=== PATIENT | female | born 1970 | race Caucasian/White ===

== ENCOUNTER 2017-11-03 13:41 | Observation (INO) ==
[2017-11-03 14:47] LABS: Bilirubin,Urine Negative (Negative); Blood,Urine Small (Negative); Clarity,Urine Clear (Clear); Color,Urine Yellow (Yellow); Glucose,Urine (UA) Normal (Normal); Ketones,Urine Negative (Negative); Leukocyte Esterase,Urine Trace (Negative); Nitrite,Urine Negative (Negative); PH,Urine 6.5 pH Units (5.0-8.0); Protein,Urine Negative (Neg-Trace); Specific Gravity,Urine 1.015 (1.010-1.025); Urobilinogen,Urine Normal (Normal)
[2017-11-03 14:50] LABS: Bacteria,Urine None Seen per hpf (None-Few); Hyaline Casts,Urine None Seen per lpf (None-Few); Squamous Epithelial Cell,Urine Many per lpf (None-Few); WBC,Urine 0-3 per hpf (0-3)
[2017-11-03 14:58] LABS: Basophils % 0.5 %; Eosinophils # 0.1 K/mcL (0.0-0.6); Eosinophils % 0.7 %; Hematocrit 45.6 % (35.3-44.9); Hemoglobin 15.3 g/dL (11.5-15.4); Immature Granulocytes % 0.3 % (0-4); Lymphocytes % 13.5 %; Mean Corpuscular HGB Conc 33.6 g/dL (31.6-35.5); Mean Corpuscular Hemoglobin 31.9 pg (28.0-33.3); Mean Platelet Volume 10.1 fL (9.4-12.4); Monocytes # 0.4 K/mcL (0.0-1.3); Monocytes % 4.8 %; Neutrophils # 5.9 K/mcL (1.6-8.9); Platelet Count 219 K/mcL (140-400); Red Cell Distribution Width 12.7 % (11.5-14.5); Segmented Neutrophils % 80.2 %
[2017-11-03 15:03] LABS: BUN/Creatinine Ratio 9 (6-26); Blood Urea Nitrogen 9 mg/dL (6-20); Calcium 9.3 mg/dL (8.6-10.3); Carbon Dioxide 31 mEq/L (23-29); Chloride 105 mEq/L (98-107); Glucose 79 mg/dL (70-105); Osmolality,Calculated 290 (280-300); Potassium 3.7 mEq/L (3.5-5.1); Sodium 141 mEq/L (136-145); eGFR For Non-African Americans > 60 (> 60)
--- NOTE | 2017-11-03 15:13 | Emergency Department Note ---
Disposition Clinical Impression: Depression Disposition: Admitted As Inpatient Condition: Undetermined Referrals: NONE,PCP [Primary Care Provider] - Aleah Levi MD [Family Provider] - Forms: ED Satisfaction Letter Time of Disposition: 18:00 General Adult HPI - General Chief complaint: ED Psychiatric Symptoms Stated complaint: SI/depression Time Seen by Provider: 11/03/17 14:04 Source: patient Limitations: no limitations Nursing Notes Reviewed: Yes Vital Signs Reviewed: Yes - History of Present Illness HPI Narrative: 47 yo F here for depression and anxiety issues. Patient states she has been struggling most of her life with depression and anxiety. She had been on Lexapro for 18 years. She has had some recent changes in her mood lately. They started her on Lamictal as well. She was placed on this for possible bipolar disorder. She currently is on trazodone and Lexapro. They at supper Lexapro for a while in which she was on another medication but did not have much relief. She denies any homicidal or suicidal thoughts. She does explain helplessness and hopelessness and helplessness. Pain Scale: 0 - Related Data Allergies Allergy/AdvReac Type Severity Reaction Status Date / Time No Known Allergies Allergy Verified 11/03/17 13:56 All systems ED: reviewed and negative except as stated. Constitutional: Denies: fever Eyes: Denies: eye pain Cardiovascular: Denies: chest pain Respiratory: Denies: cough, dyspnea Gastrointestinal: Denies: abdominal pain Genitourinary: Reports: as per HPI Musculoskeletal: Reports: as per HPI Psychiatric: Reports: anxiety, depression. Denies: suicidal thoughts, homicidal thoughts Endocrine: Reports: as per HPI Hematological/Lymphatic: Reports: as per HPI Allergic/Immunologic: Reports: as per HPI Past Medical History - Past Medical History Medical history: Reports: hypertension, other Psychiatric history: Reports: anxiety, bipolar, depression, panic disorder - Social History Smoking Status: Never smoker Smokeless Tobacco Status: No Alcohol use: Reports: none Drug use: Reports: none Physical Exam HEENT: Head atraumatic normocephalic. Pharynx clear with no exudates. Oral mucosa moist. Uvula midline. TMs clear bilaterally. Trachea midline. No lymphadenopathy. Heart: Regular rate and rhythm. Normal S1 and S2. No gallops, rubs, or murmurs. Lungs: Clear to auscultation bilaterally. No evidence of any rhonchi wheezing or rales. Abdomen: Soft nontender nondistended. Positive bowel sounds. No peritoneal signs. Extremities: No evidence of cyanosis clubbing or edema. Neuro: Cranial nerves II through XII grossly intact. No focal motor or sensory deficits. Speech is clear. Skin: Normal color. dry. Psych: normal mentation. Patient feels depressed and withdrawn. No homicidal or suicidal thoughts. - General Limitations: no limitations General appearance: alert, in no apparent distress Course Vital Signs Temperature 97.6 F 11/03/17 13:56 Pulse Rate 63 11/03/17 13:56 Respiratory Rate 16 11/03/17 13:56 Blood Pressure 133/79 11/03/17 13:56 O2 Sat by Pulse Oximetry 98 11/03/17 13:56 Temperature 97.6 F 11/03/17 14:07 Pulse Rate 63 11/03/17 14:07 Respiratory Rate 16 11/03/17 14:07 Blood Pressure 133/79 11/03/17 14:07 O2 Sat by Pulse Oximetry 98 11/03/17 14:07 Oxygen Delivery Oxygen Delivery Room Air Medical Decision Making - MDM Narrative Medical decision making narrative: seen by 1A and will admit pink slip filled out - Medical Records Medical records reviewed: Yes I reviewed the patient's medical records. - Lab Data Lab results reviewed: Yes I reviewed the patient's lab results. Result diagrams: 11/03/17 14:30 11/03/17 14:30 Lab Results 11/03/17 11/03/17 11/03/17 Range/Units 14:30 14:30 14:30 WBC 7.4 (4.3-11.1) K/mcL RBC 4.80 (3.82-4.97) M/mcL Hgb 15.3 (11.5-15.4) g/dL Hct 45.6 H (35.3-44.9) % MCV 95.0 (83.0-100.0) fL MCH 31.9 (28.0-33.3) pg MCHC 33.6 (31.6-35.5) g/dL RDW 12.7 (11.5-14.5) % Plt Count 219 (140-400) K/mcL MPV 10.1 (9.4-12.4) fL Immature Gran % 0.3 (0-4) % Seg Neutrophils % 80.2 % Lymphocytes % 13.5 % Monocytes % 4.8 % Eosinophils % 0.7 % Basophils % 0.5 % Neutrophils # 5.9 (1.6-8.9) K/mcL Lymphocytes # 1.0 (0.6-4.6) K/mcL Monocytes # 0.4 (0.0-1.3) K/mcL Eosinophils # 0.1 (0.0-0.6) K/mcL Basophils # 0.0 (0.0-0.2) K/mcL Sodium (136-145) mEq/L Potassium (3.5-5.1) mEq/L Chloride (98-107) mEq/L Carbon Dioxide (23-29) mEq/L BUN (6-20) mg/dL Creatinine (0.60-1.20) mg/dL Est GFR ( Amer) (> 60) Est GFR (Non-Af Amer) (> 60) BUN/Creatinine Ratio (6-26) Glucose (70-105) mg/dL Calculated Osmolality (280-300) Calcium (8.6-10.3) mg/dL TSH (0.340-5.600) mcIU/mL Urine Color Yellow (Yellow) Urine Clarity Clear (Clear) Urine pH 6.5 (5.0-8.0) pH Units Ur Specific [place] 1.015 (1.010-1.025) Urine Protein Negative (Neg-Trace) mg/dL Urine Glucose (UA) Normal (Normal) mg/dL Urine Ketones Negative (Negative) mg/dL Urine Blood Small H (Negative) Urine Nitrite Negative (Negative) Urine Bilirubin Negative (Negative) Urine Urobilinogen Normal (Normal) mg/dL Ur Leukocyte Esterase Trace H (Negative) Urine Microscopic RBC 3-5 H (0-3) per hpf Urine Microscopic WBC 0-3 (0-3) per hpf Ur Squamous Epith Cells Many H (None-Few) per lpf Urine Bacteria None Seen (None-Few) per hpf Hyaline Casts None Seen (None-Few) per lpf Ur Culture Indicated? NO. A (NO) Urine Opiates Screen Negative (Orxdke=189) ng/mL Ur Barbiturates Screen Negative (Fqoazu=378) ng/mL Ur Phencyclidine Scrn Negative (Cutoff=25) ng/mL Ur Amphetamines Screen Negative (Kkqyxj=0890) ng/mL U Benzodiazepines Scrn Negative (Voylqd=639) ng/mL Urine Cocaine Screen Negative (Cutoff= 300) ng/mL U Marijuana (THC) Screen Negative (Cutoff = 50) ng/mL Ur Drug Screen Interp See Below 11/03/17 11/03/17 Range/Units 14:30 14:30 WBC (4.3-11.1) K/mcL RBC (3.82-4.97) M/mcL Hgb (11.5-15.4) g/dL Hct (35.3-44.9) % MCV (83.0-100.0) fL MCH (28.0-33.3) pg MCHC (31.6-35.5) g/dL RDW (11.5-14.5) % Plt Count (140-400) K/mcL MPV (9.4-12.4) fL Immature Gran % (0-4) % Seg Neutrophils % % Lymphocytes % % Monocytes % % Eosinophils % % Basophils % % Neutrophils # (1.6-8.9) K/mcL Lymphocytes # (0.6-4.6) K/mcL Monocytes # (0.0-1.3) K/mcL Eosinophils # (0.0-0.6) K/mcL Basophils # (0.0-0.2) K/mcL Sodium 141 (136-145) mEq/L Potassium 3.7 (3.5-5.1) mEq/L Chloride 105 (98-107) mEq/L Carbon Dioxide 31 H (23-29) mEq/L BUN 9 (6-20) mg/dL Creatinine 0.95 (0.60-1.20) mg/dL Est GFR ( Amer) > 60 (> 60) Est GFR (Non-Af Amer) > 60 (> 60) BUN/Creatinine Ratio 9 (6-26) Glucose 79 (70-105) mg/dL Calculated Osmolality 290 (280-300) Calcium 9.3 (8.6-10.3) mg/dL TSH 0.759 (0.340-5.600) mcIU/mL Urine Color (Yellow) Urine Clarity (Clear) Urine pH (5.0-8.0) pH Units Ur Specific [place] (1.010-1.025) Urine Protein (Neg-Trace) mg/dL Urine Glucose (UA) (Normal) mg/dL Urine Ketones (Negative) mg/dL Urine Blood (Negative) Urine Nitrite (Negative) Urine Bilirubin (Negative) Urine Urobilinogen (Normal) mg/dL Ur Leukocyte Esterase (Negative) Urine Microscopic RBC (0-3) per hpf Urine Microscopic WBC (0-3) per hpf Ur Squamous Epith Cells (None-Few) per lpf Urine Bacteria (None-Few) per hpf Hyaline Casts (None-Few) per lpf Ur Culture Indicated? (NO) Urine Opiates Screen (Bxbllk=501) ng/mL Ur Barbiturates Screen (Gelwmc=849) ng/mL Ur Phencyclidine Scrn (Cutoff=25) ng/mL Ur Amphetamines Screen (Xubyxp=9699) ng/mL U Benzodiazepines Scrn (Ynenuu=961) ng/mL Urine Cocaine Screen (Cutoff= 300) ng/mL U Marijuana (THC) Screen (Cutoff = 50) ng/mL Ur Drug Screen Interp
[2017-11-03 15:22] LABS: Amphetamine Screen,Urine Negative ng/mL (Cutoff=1000); Barbiturate Screen,Urine Negative ng/mL (Cutoff=200)
[2017-11-03 15:23] LABS: Benzodiazepines Screen,Urine Negative ng/mL (Cutoff=300); Cannabinoid Screen,Urine Negative ng/mL (Cutoff = 50); Cocaine Screen,Urine Negative ng/mL (Cutoff= 300); Opiate Screen,Urine Negative ng/mL (Cutoff=300); Phencyclidine Screen,Urine Negative ng/mL (Cutoff=25)
[2017-11-03] MEDS ORDERED: Mag Hydrox/Al Hydrox/Simeth 30 ML UDC PO PRN (19:55)
[2017-11-03] MEDS ORDERED: hydrOXYzine pamoate 25 MG CAPSULE PO PRN (19:55)
[2017-11-03] MEDS ORDERED: traZODone 50 MG TABLET PO PRN ×2 (19:55→20:21)
[2017-11-03] MEDS ORDERED: Acetaminophen 325 MG TABLET PO PRN (19:55)
[2017-11-03] MEDS ORDERED: *HR* LORazepam 2 MG/ML VIAL IM PRN (19:55)
[2017-11-03] MEDS ORDERED: *HR* LORazepam 1 MG TABLET PO PRN (19:55)
[2017-11-03] MEDS ORDERED: Haloperidol Lactate 5 MG/ML VIAL IM PRN (19:55)
[2017-11-03] MEDS ORDERED: MOM Conc 10 ML UD.LIQ PO PRN (19:55)
[2017-11-03] MEDS ORDERED: clonazePAM 0.5 MG TABLET PO PRN (20:21)
[2017-11-03] MEDS ORDERED: Metoprolol XL (24 HR) Succ 50 MG TAB.ER.24H PO SCH (21:00)
[2017-11-04 08:56] VITALS: BP 137/84
[2017-11-04] MEDS ORDERED: Cholecalciferol (D-3) 1,000 UNIT TABLET PO SCH (09:00)
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
== END 2017-11-04 14:50 | disposition home or self-care (01) ==
LOC: EMEROOARM 13:41 → 1ANU 13:41
PROVIDERS: ADMIT Psychiatry & Neurology Forensic Psychiatry; ATTEND Psychiatry & Neurology Forensic Psychiatry

== ENCOUNTER 2017-11-09 11:26 | Inpatient (IN) ==
[2017-11-09 12:02] LABS: Bilirubin,Urine Negative (Negative); Blood,Urine Large (Negative); Clarity,Urine Cloudy (Clear); Color,Urine Yellow (Yellow); Glucose,Urine (UA) Normal (Normal); Ketones,Urine Negative (Negative); Leukocyte Esterase,Urine Moderate (Negative); Nitrite,Urine Negative (Negative); Protein,Urine Trace mg/dL (Neg-Trace); Urobilinogen,Urine Normal (Normal)
[2017-11-09 12:04] LABS: Bacteria,Urine None Seen per hpf (None-Few); Hyaline Casts,Urine None Seen per lpf (None-Few); RBC,Urine 50-100 per hpf (0-3); Squamous Epithelial Cell,Urine Many per lpf (None-Few)
[2017-11-09 12:08] LABS: Amphetamine Screen,Urine Negative ng/mL (Cutoff=1000); Barbiturate Screen,Urine Negative ng/mL (Cutoff=200); Benzodiazepines Screen,Urine Negative ng/mL (Cutoff=200); Cannabinoid Screen,Urine Negative ng/mL (Cutoff = 50); Cocaine Screen,Urine Negative ng/mL (Cutoff= 300); Opiate Screen,Urine Negative ng/mL (Cutoff=300); Phencyclidine Screen,Urine Negative ng/mL (Cutoff=25)
[2017-11-09 12:20] LABS: Basophils % 0.7 %; Eosinophils # 0.1 K/mcL (0.0-0.6); Eosinophils % 1.1 %; Hematocrit 42.1 % (35.3-44.9); Hemoglobin 14.5 g/dL (11.5-15.4); Immature Granulocytes % 0.2 % (0-4); Lymphocytes # 1.1 K/mcL (0.6-4.6); Lymphocytes % 19.3 %; Mean Corpuscular HGB Conc 34.4 g/dL (31.6-35.5); Mean Corpuscular Hemoglobin 31.5 pg (28.0-33.3); Mean Corpuscular Volume 91.5 fL (83.0-100.0); Monocytes # 0.3 K/mcL (0.0-1.3); Monocytes % 5.1 %; Neutrophils # 4.2 K/mcL (1.6-8.9); Platelet Count 179 K/mcL (140-400); Red Cell Distribution Width 12.6 % (11.5-14.5); Segmented Neutrophils % 73.6 %
[2017-11-09 12:45] LABS: Acetaminophen < 10 mcg/mL (10-20); BUN/Creatinine Ratio 19 (6-26); Blood Urea Nitrogen 16 mg/dL (6-20); Calcium 8.5 mg/dL (8.6-10.3); Carbon Dioxide 28 mEq/L (23-29); Chloride 108 mEq/L (98-107); Ethanol < 10 mg/dL (Less than 10); Glucose 99 mg/dL (70-105); Osmolality,Calculated 287 (280-300); Potassium 4.3 mEq/L (3.5-5.1); Salicylate < 2.5 mg/dL (15.0-30.0); Sodium 138 mEq/L (136-145); eGFR For Non-African Americans > 60 (> 60)
--- NOTE | 2017-11-09 12:50 | Emergency Department Note ---
Disposition Clinical Impression: Suicidal ideation Depression Qualifiers: Depression Type: unspecified Qualified Code(s): F32.9 - Major depressive disorder, single episode, unspecified Disposition: Admitted As Inpatient Condition: Good Forms: ED Satisfaction Letter Time of Disposition: 14:10 Psych HPI - General Chief Complaint: ED Psychiatric Symptoms Stated Complaint: SI Time Seen by Provider: 11/09/17 11:45 Source: patient Mode of arrival: ambulatory Limitations: no limitations Nursing Notes Reviewed: Yes Vital Signs Reviewed: Yes - History of Present Illness HPI Narrative: Patient presents to the emergency room for evaluation of depression. She was seen here one week ago for similar issue. She is starting her home medication Seroquel and since then his had progression of the symptoms. Currently denying chest pain shortness of breath headache vision changes nausea vomiting or diarrhea. Patient denies any active plan of suicidal ideation at this time. Pt complaint: suicidal ideation, feels depressed Onset (ago): week(s) Duration: constant History of similar episodes: Yes Improves with: none Worsens with: none Context: new medication(s) Alleged intoxication: No Associated Psychiatric Symptoms: depression, suicidal ideation Traumatic symptoms: denies traumatic injury Treatments prior to arrival: none Self harm or harm to others: admits thoughts of self harm - Related Data Home Medications Medication Instructions Recorded Confirmed Ergocalciferol (VITAMIN D2) 800 unit PO DAILY 11/03/17 11/09/17 [Vitamin D] Escitalopram [Lexapro] 20 mg PO DAILY 11/03/17 11/09/17 Krill/Om-3/Dha/Epa/Phospho/Ast 1 cap PO DAILY 11/03/17 11/09/17 [[place]-3 Krill Oil 1,000 mg] Metoprolol Succinate [Toprol Xl] 50 mg PO HS 11/03/17 11/09/17 clonazePAM [Clonazepam] 0.5 - 1 mg PO DAILY PRN 11/03/17 11/09/17 Melatonin/Pyridoxine HCl (B6) 1 tab PO HS 11/09/17 11/09/17 [Melatonin 3 mg Tablet] Quetiapine Fumarate [SEROquel] 100 mg PO HS 11/09/17 11/09/17 Allergies Allergy/AdvReac Type Severity Reaction Status Date / Time No Known Allergies Allergy Verified 11/09/17 14:01 All systems ED: reviewed and negative except as stated. Review of Systems: As Per HPI Constitutional: Denies: fever, chills Cardiovascular: Denies: chest pain, palpitations, dyspnea on exertion Respiratory: Denies: cough, dyspnea, wheezes Gastrointestinal: Denies: nausea, vomiting, diarrhea Genitourinary: Denies: dysuria, frequency Musculoskeletal: Denies: back pain, neck pain Neurological: Denies: headache Psychiatric: Reports: depression, suicidal thoughts. Denies: anxiety, homicidal thoughts Endocrine: Denies: fatigue Past Medical History - Past Medical History Attestation: Yes The following information was validated with the patient. Source: patient Medical history: Reports: hypertension, renal disease, other Surgical history: Reports: angioplasty/stent Psychiatric history: Reports: depression, previous psychiatric hospitalization - Social History Smoking Status: Never smoker Smokeless Tobacco Status: No Alcohol use: Reports: none Drug use: Reports: none Physical Exam - General Limitations: no limitations General appearance: alert - Head Head exam: atraumatic, normocephalic, normal inspection - Neck Neck exam: Present: normal inspection, full ROM, trachea midline. Absent: tenderness - Chest Chest inspection: Present: normal inspection, symmetric chest wall rise. Absent : tenderness - Respiratory Respiratory exam: Present: normal lung sounds bilaterally. Absent: respiratory distress, wheezes, accessory muscle use - Cardiovascular Cardiovascular exam: Present: regular rate, normal rhythm, normal heart sounds - Abdominal Exam Abdominal exam: Present: soft, Non-Tender, normal bowel sounds. Absent: tenderness, distention, guarding, rebound, rigidity - Extremities Exam Extremities exam: Present: normal inspection, full ROM, normal capillary refill. Absent: tenderness, pedal edema - Back Exam Back exam: Present: normal inspection, full ROM - Neurological Exam Neurological exam: Present: alert, oriented X3, CN II-XII intact, normal gait - Psychiatric Psychiatric exam: Present: depressed, suicidal ideation - Skin Skin exam: Present: warm, dry, intact, normal color Course Course Narrative: Patient seen and examined the time of arrival. See history of present illness. 47-year-old female presents emergency room for depression. She is also had suicidal thoughts at home with no active plan. She was seen here recently for similar issue. On arrival here, she is denying chest pain shortness of breath headache vision changes nausea vomiting or diarrhea. No fevers no chills. During my evaluation at the bedside for medical clearance the patient was tearful in describing progression of her symptoms at home despite being started on new medication helped with sleep. She denies any trauma or injuries. Denies any ingestion. Physical exam is unremarkable. Vital signs are stable lungs are clear heart is regular abdomen is soft. No other complaints or symptoms this time. Medical clearance evaluation will be established at this point and then patient will have psychiatric treatment completed here at this time. - Reevaluation(s) Reevaluation #1: Medical clearance is completed. No substances of abuse noted on examination. Urine collection was contaminated but no visible signs of urinary tract infection. We will continue to monitor here until psychiatric team evaluates the patient the bedside. Time: 13:07 Reevaluation #2: Patient was evaluated by the psychiatric team and they will be admitting her at this time for continuation of her care. No other recommendations issues at this time Time: 14:10 Vital Signs Temperature 98.4 F 11/09/17 11:29 Pulse Rate 61 11/09/17 11:29 Respiratory Rate 16 11/09/17 11:29 Blood Pressure 150/88 11/09/17 11:29 O2 Sat by Pulse Oximetry 97 11/09/17 11:29 Temperature 98.4 F 11/09/17 11:29 Pulse Rate 61 11/09/17 11:29 Respiratory Rate 16 11/09/17 11:29 Blood Pressure 150/88 11/09/17 11:29 O2 Sat by Pulse Oximetry 97 11/09/17 11:29 Oxygen Delivery Oxygen Delivery Room Air Psych - MDM Narrative Medical decision making narrative: Depression, suicidal ideation - Medical Records Medical records reviewed: Yes I reviewed the patient's medical records. - Lab Data Lab results reviewed: Yes I reviewed the patient's lab results. Result diagrams: 11/09/17 12:09 11/09/17 12:09 Lab Results 11/09/17 11/09/17 11/09/17 Range/Units 10:48 10:48 10:48 WBC (4.3-11.1) K/mcL RBC (3.82-4.97) M/mcL Hgb (11.5-15.4) g/dL Hct (35.3-44.9) % MCV (83.0-100.0) fL MCH (28.0-33.3) pg MCHC (31.6-35.5) g/dL RDW (11.5-14.5) % Plt Count (140-400) K/mcL MPV (9.4-12.4) fL Immature Gran % (0-4) % Seg Neutrophils % % Lymphocytes % % Monocytes % % Eosinophils % % Basophils % % Neutrophils # (1.6-8.9) K/mcL Lymphocytes # (0.6-4.6) K/mcL Monocytes # (0.0-1.3) K/mcL Eosinophils # (0.0-0.6) K/mcL Basophils # (0.0-0.2) K/mcL Sodium (136-145) mEq/L Potassium (3.5-5.1) mEq/L Chloride (98-107) mEq/L Carbon Dioxide (23-29) mEq/L BUN (6-20) mg/dL Creatinine (0.60-1.20) mg/dL Est GFR ( Amer) (> 60) Est GFR (Non-Af Amer) (> 60) BUN/Creatinine Ratio (6-26) Glucose (70-105) mg/dL Calculated Osmolality (280-300) Calcium (8.6-10.3) mg/dL TSH (0.340-5.600) mcIU/mL Urine Color Yellow (Yellow) Urine Clarity Cloudy A (Clear) Urine pH 6.0 (5.0-8.0) pH Units Ur Specific [place] 1.020 (1.010-1.025) Urine Protein Trace (Neg-Trace) mg/dL Urine Glucose (UA) Normal (Normal) mg/dL Urine Ketones Negative (Negative) mg/dL Urine Blood Large H (Negative) Urine Nitrite Negative (Negative) Urine Bilirubin Negative (Negative) Urine Urobilinogen Normal (Normal) mg/dL Ur Leukocyte Esterase Moderate H (Negative) Urine Microscopic RBC 50-100 H (0-3) per hpf Urine Microscopic WBC 5-15 H (0-3) per hpf Ur Squamous Epith Cells Many H (None-Few) per lpf Urine Bacteria None Seen (None-Few) per hpf Hyaline Casts None Seen (None-Few) per lpf Urine Test Negative (Negative) Salicylates (15.0-30.0) mg/dL Urine Opiates Screen Negative (Ijlnmk=869) ng/mL Acetaminophen (10-20) mcg/mL Ur Barbiturates Screen Negative (Gnmqbe=908) ng/mL Ur Phencyclidine Scrn Negative (Cutoff=25) ng/mL Ur Amphetamines Screen Negative (Kraueq=3278) ng/mL U Benzodiazepines Scrn Negative (Tnlbyc=884) ng/mL Urine Cocaine Screen Negative (Cutoff= 300) ng/mL U Marijuana (THC) Screen Negative (Cutoff = 50) ng/mL Ur Drug Screen Interp See Below Ethyl Alcohol (Less than 10) mg/dL 11/09/17 11/09/17 Range/Units 12:09 12:09 WBC 5.7 (4.3-11.1) K/mcL RBC 4.60 (3.82-4.97) M/mcL Hgb 14.5 (11.5-15.4) g/dL Hct 42.1 (35.3-44.9) % MCV 91.5 (83.0-100.0) fL MCH 31.5 (28.0-33.3) pg MCHC 34.4 (31.6-35.5) g/dL RDW 12.6 (11.5-14.5) % Plt Count 179 (140-400) K/mcL MPV 10.0 (9.4-12.4) fL Immature Gran % 0.2 (0-4) % Seg Neutrophils % 73.6 % Lymphocytes % 19.3 % Monocytes % 5.1 % Eosinophils % 1.1 % Basophils % 0.7 % Neutrophils # 4.2 (1.6-8.9) K/mcL Lymphocytes # 1.1 (0.6-4.6) K/mcL Monocytes # 0.3 (0.0-1.3) K/mcL Eosinophils # 0.1 (0.0-0.6) K/mcL Basophils # 0.0 (0.0-0.2) K/mcL Sodium 138 (136-145) mEq/L Potassium 4.3 (3.5-5.1) mEq/L Chloride 108 H (98-107) mEq/L Carbon Dioxide 28 (23-29) mEq/L BUN 16 (6-20) mg/dL Creatinine 0.83 (0.60-1.20) mg/dL Est GFR ( Amer) > 60 (> 60) Est GFR (Non-Af Amer) > 60 (> 60) BUN/Creatinine Ratio 19 (6-26) Glucose 99 (70-105) mg/dL Calculated Osmolality 287 (280-300) Calcium 8.5 L (8.6-10.3) mg/dL TSH 0.621 (0.340-5.600) mcIU/mL Urine Color (Yellow) Urine Clarity (Clear) Urine pH (5.0-8.0) pH Units Ur Specific [place] (1.010-1.025) Urine Protein (Neg-Trace) mg/dL Urine Glucose (UA) (Normal) mg/dL Urine Ketones (Negative) mg/dL Urine Blood (Negative) Urine Nitrite (Negative) Urine Bilirubin (Negative) Urine Urobilinogen (Normal) mg/dL Ur Leukocyte Esterase (Negative) Urine Microscopic RBC (0-3) per hpf Urine Microscopic WBC (0-3) per hpf Ur Squamous Epith Cells (None-Few) per lpf Urine Bacteria (None-Few) per hpf Hyaline Casts (None-Few) per lpf Urine Test (Negative) Salicylates < 2.5 L (15.0-30.0) mg/dL Urine Opiates Screen (Ffqmmu=363) ng/mL Acetaminophen < 10 L (10-20) mcg/mL Ur Barbiturates Screen (Xmcspn=184) ng/mL Ur Phencyclidine Scrn (Cutoff=25) ng/mL Ur Amphetamines Screen (Fuvpgj=3582) ng/mL U Benzodiazepines Scrn (Hogtex=925) ng/mL Urine Cocaine Screen (Cutoff= 300) ng/mL U Marijuana (THC) Screen (Cutoff = 50) ng/mL Ur Drug Screen Interp Ethyl Alcohol < 10 (Less than 10) mg/dL Psychiatric Medical Clearance - Medical Clearance Checklist Does the patient have a NEW psychiatric condition?: No Any abnormalities indicating possible medical illness?: No Any history of medical issues?: Yes Medical History: No Social History Section defined Any abnormal vital signs prior to transfer?: No Current Vitals: Last Vital Signs Temp 98.4 F 11/09/17 11:29 Pulse 61 11/09/17 11:29 Resp 16 11/09/17 11:29 BP 150/88 11/09/17 11:29 Pulse Ox 97 11/09/17 11:29 Is the patient intoxicated or cognitively impaired?: No Psychiatric Lab Panel: Drug Levels and Toxicity 11/09/17 11/09/17 10:48 12:09 Urine Opiates Screen Negative Acetaminophen < 10 L Ur Barbiturates Screen Negative Ur Phencyclidine Scrn Negative Ur Amphetamines Screen Negative U Benzodiazepines Scrn Negative Urine Cocaine Screen Negative U Marijuana (THC) Screen Negative Ethyl Alcohol < 10 Any abnormalities on the physical exam?: No Any abnormal labs?: No Abnormal Labs: Abnormal lab results Chloride 108 mEq/L (98-107) H 11/09/17 12:09 Calcium 8.5 mg/dL (8.6-10.3) L 11/09/17 12:09 Urine Clarity Cloudy (Clear) A 11/09/17 10:48 Urine Blood Large (Negative) H 11/09/17 10:48 Ur Leukocyte Esterase Moderate (Negative) H 11/09/17 10:48 Urine Microscopic RBC 50-100 per hpf (0-3) H 11/09/17 10:48 Urine Microscopic WBC 5-15 per hpf (0-3) H 11/09/17 10:48 Ur Squamous Epith Cells Many per lpf (None-Few) H 11/09/17 10:48 Salicylates < 2.5 mg/dL (15.0-30.0) L 11/09/17 12:09 Acetaminophen < 10 mcg/mL (10-20) L 11/09/17 12:09 Does the patient require durable medical equiptment?: No Is the patient ambulatory?: Yes Is the patient a fall risk?: No Has the patient been medically cleared?: Yes Statement of Medical Clearance: I have evaluated the patient, reviewed diagnostic information, and certify that the patient's medical condition is sufficiently stable that transfer to the psychiatric unit does not pose a significant risk of deterioration.
[2017-11-09 12:58] LABS: Thyroid Stimulating Hormone 0.621 mcIU/mL (0.340-5.600)
[2017-11-09] MEDS ORDERED: traZODone 50 MG TABLET PO PRN (17:14)
[2017-11-09] MEDS ORDERED: MOM Conc 10 ML UD.LIQ PO PRN (17:14)
[2017-11-09] MEDS ORDERED: *HR* LORazepam 2 MG/ML VIAL IM PRN (17:14)
[2017-11-09] MEDS ORDERED: Acetaminophen 325 MG TABLET PO PRN (17:14)
[2017-11-09] MEDS ORDERED: Haloperidol Lactate 5 MG/ML VIAL IM PRN (17:14)
[2017-11-09] MEDS ORDERED: *HR* LORazepam 1 MG TABLET PO PRN (17:14)
[2017-11-09] MEDS ORDERED: hydrOXYzine pamoate 25 MG CAPSULE PO PRN (17:14)
[2017-11-09] MEDS ORDERED: Mag Hydrox/Al Hydrox/Simeth 30 ML UDC PO PRN (17:14)
[2017-11-09] MEDS: clonazePAM 0.5 MG TABLET PO PRN (17:45)
[2017-11-09] MEDS: Metoprolol XL (24 HR) Succ 50 MG TAB.ER.24H PO SCH (20:55)
[2017-11-09] MEDS ORDERED: (Melatonin/Pyridoxine Hcl (B6) [Melatonin 3 Mg Tablet PO SCH (21:00)
[2017-11-10] MEDS: Cholecalciferol (D-3) 1,000 UNIT TABLET PO SCH (08:27)
[2017-11-10] MEDS ORDERED: EPA PO SCH (09:00)
[2017-11-10] MEDS ORDERED: [UNRECOGNIZED DRUG - OTHER] PO SCH (09:00)
[2017-11-10] MEDS ORDERED: AST PO SCH (09:00)
[2017-11-10] MEDS ORDERED: PHOSPHO PO SCH (09:00)
[2017-11-10] MEDS ORDERED: DHA PO SCH (09:00)
[2017-11-10] MEDS ORDERED: KRILL PO SCH (09:00)
--- NOTE | 2017-11-10 13:06 | Psychiatry History & Physical ---
Date of Encounter: 11/10/17 Time of Encounter: 12:30 History of Present Illness Patient Stated Chief Complaint: Depression and suicidal ideation Medicare Admission Attestation: For traditional Medicare patients the provided hospital inpatient services are reasonable and necessary and in the case of services not specified as inpatient -only under 42 CFR 419.22 (n), that they are appropriately provided as inpatient services in accordance 42 CFR 412.3. For Critical Access Hospital the patient may reasonably be expected to be discharged or transferred to a hospital within 96 hours after admission to the Critical Access Hospital. Admitted From: Emergency Dept History of Present Illness: Ms. Connell is a 47 year old female admitted from the emergency department for depression and suicidal ideation. Patient was recently discharged from this unit with a diagnosis of major depression recurrent without psychotic features. Patient was discharged on medication including Lexapro 20 mg Seroquel 100 mg and a small dose Klonopin 0.5 mg twice daily. Patient reports after discharge she was able to sleep about 5 hours however her depression continued to be worse and started having suicidal ideation. Please review records from previous admission for details of the history including past history and family history. Records have been reviewed. Past Med Surg Social Fam HX - Past Medical History Medical history: hypertension, renal disease - Past Psychiatric History Psychiatric history: Reports: previous psychiatric hospitalization Past psychiatric history details: Recently discharged from [facility] October 2017 - Past Surgical History Surgical History: angioplasty/stent - Social History Smoking Status: Never smoker Smokeless Tobacco Status: No Alcohol use: none Drug use: none Medications & Allergies Ergocalciferol (VITAMIN D2) [Vitamin D] 800 unit PO DAILY 11/03/17 [History] Escitalopram [Lexapro] 20 mg PO DAILY 11/03/17 [History] Krill/Om-3/Dha/Epa/Phospho/Ast [[place]-3 Krill Oil 1,000 mg] 1 cap PO DAILY 11/03 [History] Metoprolol Succinate [Toprol Xl] 50 mg PO HS 11/03/17 [History] clonazePAM [Clonazepam] 0.5 - 1 mg PO DAILY PRN 11/03/17 [History] Melatonin/Pyridoxine HCl (B6) [Melatonin 3 mg Tablet] 1 tab PO HS 11/09/17 [ History] Quetiapine Fumarate [SEROquel] 100 mg PO HS 11/09/17 [History] 3 Allergy/AdvReac Type Severity Reaction Status Date / Time No Known Allergies Allergy Verified 11/09/17 14:01 Review of Systems Psychiatric: Reports: depression, anxiety, abnormal sleep pattern, suicidal ideation Exam - HEENT Head exam IM: Present: atraumatic Eye exam IM: Present: EOMI, normal appearance, PERRL ENT exam IM: Present: normal exam - Neurological Neurological exam: Present: CN II-XII intact - Respiratory Respiratory exam IM: Present: CTAB - GI/Abdominal GI/Abdominal exam IM: Present: normal bowel sounds, soft. Absent: tenderness - Extremities Extremities exam IM: Present: full ROM - Skin Skin exam IM: Present: dry, warm - Constitutional Vitals: Temp Pulse Resp BP Pulse Ox 98.3 F 63 16 132/79 97 11/10/17 09:00 11/10/17 09:00 11/10/17 09:00 11/10/17 09:00 11/09/17 11:29 General appearance: age & developmentally appropriate, well-groomed, well- nourished, average - Musculoskeletal Gait: normal Station: relaxed Strength & Tone: normal for patient - Psychiatric Patient Orientation: Yes Person, Yes Time, Yes Place Level of alertness: Alert Behavior: calm, cooperative Psychomotor activity: Normal Eye Contact: Maintains Eye Contact Mood Description: Euthymic/stable, Depressed, Anxious Affect description: congruent with mood, constricted Speech Volume: Normal Speech pattern: normal rate, normal rhythm, normal tone, fluent, spontaneous Language & Vocabulary: consistent with education Thought Process: Linear, Goal Oriented Thought Content: Yes Suicidal ideation, No Homicidal ideation, No Overt delusions, Yes Obsessive thoughts Perceptual Disturbances: No Auditory hallucinations, No Visual hallucinations Attention Span Ability: Capable of Focused Attention Memory Description: Grossly Intact Patient Reliability: Reliable Historian Fund of knowledge: Yes abstraction ability, Yes average, Yes aware of current events Intelligence Estimate: Average Judgment: Limited Insight: Partial Results - Labs Labs: Laboratory Last Values WBC 5.7 K/mcL (4.3-11.1) 11/09/17 12:09 RBC 4.60 M/mcL (3.82-4.97) 11/09/17 12:09 Hgb 14.5 g/dL (11.5-15.4) 11/09/17 12:09 Hct 42.1 % (35.3-44.9) 11/09/17 12:09 MCV 91.5 fL (83.0-100.0) 11/09/17 12:09 MCH 31.5 pg (28.0-33.3) 11/09/17 12:09 MCHC 34.4 g/dL (31.6-35.5) 11/09/17 12:09 RDW 12.6 % (11.5-14.5) 11/09/17 12:09 Plt Count 179 K/mcL (140-400) 11/09/17 12:09 MPV 10.0 fL (9.4-12.4) 11/09/17 12:09 Immature Gran % 0.2 % (0-4) 11/09/17 12:09 Seg Neutrophils % 73.6 % 11/09/17 12:09 Lymphocytes % 19.3 % 11/09/17 12:09 Monocytes % 5.1 % 11/09/17 12:09 Eosinophils % 1.1 % 11/09/17 12:09 Basophils % 0.7 % 11/09/17 12:09 Neutrophils # 4.2 K/mcL (1.6-8.9) 11/09/17 12:09 Lymphocytes # 1.1 K/mcL (0.6-4.6) 11/09/17 12:09 Monocytes # 0.3 K/mcL (0.0-1.3) 11/09/17 12:09 Eosinophils # 0.1 K/mcL (0.0-0.6) 11/09/17 12:09 Basophils # 0.0 K/mcL (0.0-0.2) 11/09/17 12:09 Sodium 138 mEq/L (136-145) 11/09/17 12:09 Potassium 4.3 mEq/L (3.5-5.1) 11/09/17 12:09 Chloride 108 mEq/L (98-107) H 11/09/17 12:09 Carbon Dioxide 28 mEq/L (23-29) 11/09/17 12:09 BUN 16 mg/dL (6-20) 11/09/17 12:09 Creatinine 0.83 mg/dL (0.60-1.20) 11/09/17 12:09 Est GFR ( Amer) > 60 (> 60) 11/09/17 12:09 Est GFR (Non-Af Amer) > 60 (> 60) 11/09/17 12:09 BUN/Creatinine Ratio 19 (6-26) 11/09/17 12:09 Glucose 99 mg/dL (70-105) 11/09/17 12:09 Calculated Osmolality 287 (280-300) 11/09/17 12:09 Calcium 8.5 mg/dL (8.6-10.3) L 11/09/17 12:09 TSH 0.621 mcIU/mL (0.340-5.600) 11/09/17 12:09 Urine Color Yellow (Yellow) 11/09/17 10:48 Urine Clarity Cloudy (Clear) A 11/09/17 10:48 Urine pH 6.0 pH Units (5.0-8.0) 11/09/17 10:48 Ur Specific [place] 1.020 (1.010-1.025) 11/09/17 10:48 Urine Protein Trace mg/dL (Neg-Trace) 11/09/17 10:48 Urine Glucose (UA) Normal mg/dL (Normal) 11/09/17 10:48 Urine Ketones Negative mg/dL (Negative) 11/09/17 10:48 Urine Blood Large (Negative) H 11/09/17 10:48 Urine Nitrite Negative (Negative) 11/09/17 10:48 Urine Bilirubin Negative (Negative) 11/09/17 10:48 Urine Urobilinogen Normal mg/dL (Normal) 11/09/17 10:48 Ur Leukocyte Esterase Moderate (Negative) H 11/09/17 10:48 Urine Microscopic RBC 50-100 per hpf (0-3) H 11/09/17 10:48 Urine Microscopic WBC 5-15 per hpf (0-3) H 11/09/17 10:48 Ur Squamous Epith Cells Many per lpf (None-Few) H 11/09/17 10:48 Urine Bacteria None Seen per hpf (None-Few) 11/09/17 10:48 Hyaline Casts None Seen per lpf (None-Few) 11/09/17 10:48 Urine Test Negative (Negative) 11/09/17 10:48 Salicylates < 2.5 mg/dL (15.0-30.0) L 11/09/17 12:09 Urine Opiates Screen Negative ng/mL (Fpgjky=683) 11/09/17 10:48 Acetaminophen < 10 mcg/mL (10-20) L 11/09/17 12:09 Ur Barbiturates Screen Negative ng/mL (Fgyoua=653) 11/09/17 10:48 Ur Phencyclidine Scrn Negative ng/mL (Cutoff=25) 11/09/17 10:48 Ur Amphetamines Screen Negative ng/mL (Kzmxov=4491) 11/09/17 10:48 U Benzodiazepines Scrn Negative ng/mL (Nbvorg=804) 11/09/17 10:48 Urine Cocaine Screen Negative ng/mL (Cutoff= 300) 11/09/17 10:48 U Marijuana (THC) Screen Negative ng/mL (Cutoff = 50) 11/09/17 10:48 Ur Drug Screen Interp See Below 11/09/17 10:48 Ethyl Alcohol < 10 mg/dL (Less than 10) 11/09/17 12:09 Assessment and Plan (1) Major depressive disorder, recurrent severe without psychotic features Current visit: No Status: Acute Plan: Admit inpatient for safety and stabilization, Close observation, Suicide Precautions per unit protocol, Encourage participation in unit milieu, Group Therapy, Monitor sleep, Monitor appetite Additional Plan: Cymbalta 30 mg daily Risks, benefits, side effects, alternatives discussed w/pt: Yes Patient agreeable to treatment: Yes Estimated Length of Stay (Days): 7
[2017-11-10] MEDS: clonazePAM 0.5 MG TABLET PO PRN (18:52)
[2017-11-10] MEDS: Metoprolol XL (24 HR) Succ 50 MG TAB.ER.24H PO SCH (21:53)
[2017-11-10] MEDS: Melatonin 3 MG TABLET PO PRN (21:55)
[2017-11-11] MEDS: Cholecalciferol (D-3) 1,000 UNIT TABLET PO SCH (08:55)
[2017-11-11] MEDS: clonazePAM 0.5 MG TABLET PO PRN ×2 (15:29→20:51)
--- NOTE | 2017-11-11 15:53 | Psychiatry Progress Note ---
Date of Encounter: 11/11/17 Time of Encounter: 14:00 Subjective Interval history: Patient seen for follow-up. Case discussed with treatment team. Patient reports feeling less depressed. Denied any side effects of medication changes. She slept 5-6 hours. She is less anxious. She shared with me some of her recent history of depression and work stress. 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 She was educated about benzodiazepine long-term side effects and she is motivated to taper off her Klonopin completely. She denied any suicidal ideation. Review of Systems Psychiatric: Reports: depression, anxiety, abnormal sleep pattern, suicidal ideation Results - Vital Signs Vital Signs: Temp Pulse Resp BP Pulse Ox 98.2 F 67 18 132/88 97 11/11/17 09:00 11/11/17 09:00 11/11/17 09:11/11/17 09:11/09/17 11:29 Assessment and Plan (1) Major depressive disorder, recurrent severe without psychotic features Current visit: No Status: Acute Plan: Continue hospitalization, Close observation, Suicide Precautions per unit protocol, Encourage participation in unit milieu, Group Therapy, Monitor sleep, Monitor appetite Risks, benefits, side effects, alternatives discussed w/pt: Yes Patient agreeable to treatment: Yes Consult Discharge Plan - Plan Referrals: [facility] [Outside] - 11/17/17 11:00 am (The above appointment is with Sybil Jain for outpatient mental health counseling services.) [facility] [Outside] - 11/19/17 9:00 am (The above appointment is with Casimiro Yepez for outpatient psychiatric assessment and medication management services. Please arrive 10 minutes early to complete the check-in process. Please bring your insurance card (or [facility] award letter) and photo ID. If you are unable to keep this appointment, 24 hour business notice of cancellation is expected. If you miss your new patient appointment with any provider without providing appropriate notice, you cannot be re-scheduled for that service. The above appointment(s) reflects first availability. You may contact the office regularly to check for cancellations that may allow you to be seen sooner. The [facility] is the 1st building behind [facility] in [place], [place]. Please do not use GPS or mapping apps to locate the office, as they will take you to the wrong location. ) Psychiatry Exam - Constitutional Vitals: Temp Pulse Resp BP Pulse Ox 98.2 F 67 18 132/88 97 11/11/17 09:00 11/11/17 09:00 11/11/17 09:00 11/11/17 09:00 11/09/17 11:29 General appearance: age & developmentally appropriate, well-groomed, well- nourished, average - Musculoskeletal Gait: normal Station: relaxed Strength & Tone: normal for patient - Psychiatric Patient Orientation: Yes Person, Yes Time, Yes Place Level of alertness: Alert Behavior: calm, cooperative, guarded, talkative Psychomotor activity: Normal Eye Contact: Maintains Eye Contact Mood Description: Euthymic/stable Affect description: congruent with mood, full range Speech Volume: Normal Speech pattern: normal rate, normal rhythm, normal tone, fluent, spontaneous Language & Vocabulary: consistent with education Thought Process: Linear, Goal Oriented Thought Content: No Suicidal ideation, No Homicidal ideation, No Overt delusions Perceptual Disturbances: No Auditory hallucinations, No Visual hallucinations Attention Span Ability: Capable of Focused Attention Memory Description: Grossly Intact Patient Reliability: Reliable Historian Fund of knowledge: Yes abstraction ability, Yes aware of current events Intelligence Estimate: Average Judgment: Limited Insight: Partial
[2017-11-11] MEDS: Melatonin 3 MG TABLET PO PRN (20:52)
[2017-11-11] MEDS: Metoprolol XL (24 HR) Succ 50 MG TAB.ER.24H PO SCH (20:53)
[2017-11-12 08:41] VITALS: BP 125/83
[2017-11-12] MEDS: Cholecalciferol (D-3) 1,000 UNIT TABLET PO SCH (09:07)
--- NOTE | 2017-11-12 12:32 | Discharge Summary ---
Date of Encounter: 11/12/17 Time of Encounter: 12:28 Diagnosis - Discharge Diagnosis (1) Major depressive disorder, recurrent severe without psychotic features Status: Acute Medications - Discharge Medications Prescriptions: DULoxetine [Cymbalta] 30 mg PO DAILY #30 capsule. Ergocalciferol (VITAMIN D2) [Vitamin D] 800 unit PO DAILY 11/03/17 [History] Escitalopram [Lexapro] 20 mg PO DAILY 11/03/17 [History] Krill/Om-3/Dha/Epa/Phospho/Ast [[place]-3 Krill Oil 1,000 mg] 1 cap PO DAILY 11/03 [History] Metoprolol Succinate [Toprol Xl] 50 mg PO HS 11/03/17 [History] clonazePAM [Clonazepam] 0.5 - 1 mg PO DAILY PRN 11/03/17 [History] Melatonin/Pyridoxine HCl (B6) [Melatonin 3 mg Tablet] 1 tab PO HS 11/09/17 [ History] Quetiapine Fumarate [Seroquel] 100 mg PO HS 11/09/17 [History] DULoxetine [Cymbalta] 30 mg PO DAILY #30 capsule. 11/12/17 [Rx] 3 Allergy/AdvReac Type Severity Reaction Status Date / Time No Known Allergies Allergy Verified 11/09/17 14:01 Provider Date of admission: 11/09/17 15:32 Primary care physician: PCP NONE Consults: 11/09/17 16:53 Consult to Pastoral Services [CONS] Routine Comment: Discharging clinician: Dwight [facility] Psychiatry Exam - Constitutional Vitals: Temp Pulse Resp BP Pulse Ox 98.2 F 61 16 125/83 97 11/12/17 08:40 11/12/17 08:40 11/12/17 08:40 11/12/17 08:40 11/09/17 11:29 General appearance: age & developmentally appropriate, well-groomed, well- nourished - Musculoskeletal Gait: normal Station: relaxed Strength & Tone: normal for patient - Psychiatric Patient Orientation: Yes Person, Yes Time, Yes Place Level of alertness: Alert Behavior: calm, cooperative Psychomotor activity: Normal Eye Contact: Maintains Eye Contact Mood Description: Euthymic/stable Affect description: congruent with mood, full range Speech Volume: Normal Speech pattern: normal rate, normal rhythm, normal tone, fluent, spontaneous Language & Vocabulary: consistent with education Thought Process: Linear, Goal Oriented Thought Content: No Suicidal ideation, No Homicidal ideation, No Overt delusions Perceptual Disturbances: No Auditory hallucinations, No Visual hallucinations Attention Span Ability: Capable of Focused Attention Memory Description: Grossly Intact Patient Reliability: Reliable Historian Fund of knowledge: Yes abstraction ability, Yes aware of current events Intelligence Estimate: Average Judgment: Limited Insight: Partial Hospital Course Hospital course: Ms. Connell is a 47 year old female admitted from the emergency department for suicidal ideation. Patient was recently discharged from this unit and reported increasing depression and suicidal ideation. For details of admission please see H&P On the units patient was encouraged to participate in groups and activities, her medication were reviewed with and and were added Cymbalta 30 mg daily. Patient responded to medication changes, she reported improved sleep, energy and motivation. She denied any side effects from medication. She was educated about benzodiazepine dependence and she will taper off her small dose of Klonopin in the next few weeks. On discharge patient was medically stable, future oriented and anxious to go back to work denied any suicidal thoughts and adjusting well to her medication. Follow-up appointments were confirmed by social work. She is discharged in stable condition. - Time Spent with Patient Total time spent providing and/or coordinating discharge services: Greater than 30 minutes Assessment and Plan - Patient/Caregiver Discharge Instructions Activity: resume usual activities as tolerated Diet: regular diet - Follow up Plan Follow up with: [facility] [Outside] - 11/17/17 11:00 am (The above appointment is with Sybil Jain for outpatient mental health counseling services.) [facility] [Outside] - 11/19/17 9:00 am (The above appointment is with Casimiro Yepez for outpatient psychiatric assessment and medication management services. Please arrive 10 minutes early to complete the check-in process. Please bring your insurance card (or [facility]) and photo ID. If you are unable to keep this appointment, 24 hour business notice of cancellation is expected. If you miss your new patient appointment with any provider without providing appropriate notice, you cannot be re-scheduled for that service. The above appointment(s) reflects first availability. You may contact the office regularly to check for cancellations that may allow you to be seen sooner. The [facility] is the [address] [place] [address] behind [facility], [place]. Please do not use GPS or mapping apps to locate the office, as they will take you to the wrong location. ) Functional capacity at discharge: independent ambulation Overall status at discharge: Stable Disposition: Home, Self-Care Quality - Multiple Antipsychotics Patient discharged on 2 or more antipsychotic medications: No Procedures - Procedures Procedures: Medication Management, Crisis Stabilization, Supportive Therapy, Group Therapy, Psychoeducational Therapy
== END 2017-11-12 15:45 | disposition home or self-care (01) | DRG 885 ==
LOC: EMEROOARM 11:26 → 1ANU 15:32
PROVIDERS: ADMIT Psychiatry & Neurology Psychiatry; ATTEND Psychiatry & Neurology Psychiatry

== ENCOUNTER 2018-04-07 15:45 | Inpatient (IN) ==
[2018-04-07 16:34] LABS: Bilirubin,Urine Negative (Negative); Blood,Urine Trace-intact (Negative); Clarity,Urine Clear (Clear); Color,Urine Yellow (Yellow); Glucose,Urine (UA) Normal (Normal); Ketones,Urine Negative (Negative); Leukocyte Esterase,Urine Negative (Negative); Nitrite,Urine Negative (Negative); PH,Urine 6.5 pH Units (5.0-8.0); Protein,Urine Negative (Neg-Trace); Urobilinogen,Urine Normal (Normal)
[2018-04-07 16:37] LABS: Amphetamine Screen,Urine Negative ng/mL (Cutoff=1000); Barbiturate Screen,Urine Negative ng/mL (Cutoff=200); Benzodiazepines Screen,Urine Negative ng/mL (Cutoff=200); Cannabinoid Screen,Urine Negative ng/mL (Cutoff = 50); Cocaine Screen,Urine Negative ng/mL (Cutoff= 300); Opiate Screen,Urine Negative ng/mL (Cutoff=300); Phencyclidine Screen,Urine Negative ng/mL (Cutoff=25)
[2018-04-07 16:43] LABS: Basophils % 0.4 %; Eosinophils % 0.4 %; Hematocrit 41.9 % (35.3-44.9); Hemoglobin 14.6 g/dL (11.5-15.4); Immature Granulocytes % 0.2 % (0-4); Lymphocytes # 1.4 K/mcL (0.6-4.6); Lymphocytes % 15.4 %; Mean Corpuscular HGB Conc 34.8 g/dL (31.6-35.5); Mean Corpuscular Hemoglobin 31.3 pg (28.0-33.3); Mean Corpuscular Volume 89.9 fL (83.0-100.0); Mean Platelet Volume 9.8 fL (9.4-12.4); Monocytes # 0.4 K/mcL (0.0-1.3); Monocytes % 4.5 %; Neutrophils # 7.3 K/mcL (1.6-8.9); Platelet Count 232 K/mcL (140-400); Red Blood Count 4.66 M/mcL (3.82-4.97); Red Cell Distribution Width 11.9 % (11.5-14.5); Segmented Neutrophils % 79.1 %
[2018-04-07 16:51] LABS: Bacteria,Urine Few per hpf (None-Few); RBC,Urine 0-3 per hpf (0-3); Squamous Epithelial Cell,Urine Few per lpf (None-Few); WBC,Urine 0-3 per hpf (0-3)
--- NOTE | 2018-04-07 17:00 | Emergency Department Note ---
Disposition Clinical Impression: Depression, Suicidal ideation Disposition: Admitted As Inpatient Condition: Good Psych HPI - General Chief Complaint: ED Psychiatric Symptoms Stated Complaint: SI Time Seen by Provider: 04/07/18 16:17 Source: patient Mode of arrival: private vehicle Limitations: no limitations Nursing Notes Reviewed: Yes Vital Signs Reviewed: Yes - History of Present Illness HPI Narrative: 47-year-old female presenting with depression and suicidal ideation. She was admitted here 10 days ago for medication adjustments. She reports continued restlessness since being here however she was offered to be changed to propranolol but did not want to. She denies any current plan to harm herself. Denies any auditory or visual hallucinations. No other complaints. Pt complaint: suicidal ideation, feels depressed Onset (ago): day(s) Duration: constant History of similar episodes: Yes Improves with: none Worsens with: none Context: new medication(s) Alleged intoxication: No Associated Psychiatric Symptoms: depression, suicidal ideation Associated symptoms: Reports: denies other symptoms Traumatic symptoms: denies traumatic injury Treatments prior to arrival: none Self harm or harm to others: admits thoughts of self harm - Related Data Home Medications Medication Instructions Recorded Confirmed Ergocalciferol (VITAMIN D2) 800 unit PO DAILY 11/03/17 03/28/18 [Vitamin D] Metoprolol Succinate [Toprol Xl] 50 mg PO HS 11/03/17 03/28/18 clonazePAM [Clonazepam] 0.5 mg PO TID PRN 11/03/17 03/28/18 Estradiol [Estrace] 1 mg PO DAILY 03/28/18 03/28/18 Lisinopril [Zestril] 5 mg PO DAILY 03/28/18 03/28/18 Medroxyprogesterone Acetate 5 mg PO DAILY 03/28/18 03/28/18 [Provera] Ondansetron HCl [Zofran] 4 mg PO BID PRN 03/28/18 03/28/18 Quetiapine Fumarate [Seroquel] 25 mg PO HS 03/28/18 03/28/18 Previous Rx's Medication Instructions Recorded ARIPiprazole [Abilify] 10 mg PO QAM #30 tablet 04/02/18 Escitalopram [Lexapro] 20 mg PO DAILY #30 tablet 04/02/18 Melatonin 6 mg PO HS tablet 04/02/18 clonazePAM [Klonopin] 1 mg PO HS 30 Days #30 tablet 04/02/18 hydrOXYzine pamoate [HydrOXYzine 25 mg PO TID PRN #90 capsule 04/02/18 Pamoate] Allergies Allergy/AdvReac Type Severity Reaction Status Date / Time No Known Allergies Allergy Verified 11/09/17 14:01 All systems ED: reviewed and negative except as stated. Cardiovascular: Denies: chest pain Respiratory: Denies: dyspnea Psychiatric: Reports: anxiety, depression, suicidal thoughts. Denies: homicidal thoughts, auditory hallucinations, visual hallucinations Past Medical History - Past Medical History Attestation: Yes The following information was validated with the patient. Source: patient Medical history: Reports: hypertension, renal disease Surgical history: Reports: angioplasty/stent Psychiatric history: Reports: anxiety, bipolar, depression, panic disorder, previous psychiatric hospitalization - Social History Smoking Status: Never smoker Smokeless Tobacco Status: No Alcohol use: Reports: none Drug use: Reports: none Physical Exam - General Limitations: no limitations General appearance: alert, in no apparent distress - Head Head exam: atraumatic, normocephalic, normal inspection - Eye Eye exam: Present: normal appearance - ENT ENT exam: normal exam - Neck Neck exam: Present: normal inspection - Chest Chest inspection: Present: normal inspection, symmetric chest wall rise - Respiratory Respiratory exam: Present: normal lung sounds bilaterally - Cardiovascular Cardiovascular exam: Present: regular rate, normal rhythm, normal heart sounds - Abdominal Exam Abdominal exam: Present: soft, Non-Tender. Absent: tenderness, distention, rigidity - Extremities Exam Extremities exam: Present: normal inspection, full ROM - Expanded Upper Extremity Exam Shoulder exam: Present: normal inspection, full ROM Arm exam: Present: normal inspection, full ROM Elbow exam: Present: normal inspection, full ROM Forearm/Wrist exam: Present: normal inspection, full ROM Hand exam: Present: normal inspection, full ROM - Expanded Lower Extremity Exam Hip/Pelvis exam: Present: normal inspection, full ROM Upper leg exam: Present: normal inspection, full ROM Knee exam: Present: normal inspection, full ROM Lower leg exam: Present: normal inspection, full ROM Ankle exam: Present: normal inspection, full ROM Foot/toe exam: Present: normal inspection, full ROM - Neurological Exam Neurological exam: Present: alert, other (GCS 15. No focal deficits.) - Psychiatric Psychiatric exam: Present: depressed, suicidal ideation - Skin Skin exam: Present: warm, dry Course Course Narrative: Patient seen and examined. Vital signs reviewed. She is pink slipped awaiting medical clearance for psychiatric evaluation. Vital Signs Temperature 97.7 F 04/07/18 15:52 Pulse Rate 85 04/07/18 15:52 Respiratory Rate 16 04/07/18 15:52 Blood Pressure 175/90 04/07/18 15:52 O2 Sat by Pulse Oximetry 98 04/07/18 15:52 Temperature 97.7 F 04/07/18 15:52 Pulse Rate 85 04/07/18 15:52 Respiratory Rate 16 04/07/18 15:52 Blood Pressure 175/90 04/07/18 15:52 O2 Sat by Pulse Oximetry 98 04/07/18 15:52 Oxygen Delivery Oxygen Delivery Room Air Psych - MDM Narrative Medical decision making narrative: 47-year-old female presenting with depression and suicidal ideation. She was medically cleared and evaluated by psychiatry. She is admitted to the psych iatric unit for inpatient management. - Lab Data Lab results reviewed: Yes I reviewed the patient's lab results. Result diagrams: 04/07/18 16:31 04/07/18 16:31 Lab Results 04/07/18 04/07/18 04/07/18 Range/Units 16:15 16:15 16:15 WBC (4.3-11.1) K/mcL RBC (3.82-4.97) M/mcL Hgb (11.5-15.4) g/dL Hct (35.3-44.9) % MCV (83.0-100.0) fL MCH (28.0-33.3) pg MCHC (31.6-35.5) g/dL RDW (11.5-14.5) % Plt Count (140-400) K/mcL MPV (9.4-12.4) fL Immature Gran % (0-4) % Seg Neutrophils % % Lymphocytes % % Monocytes % % Eosinophils % % Basophils % % Neutrophils # (1.6-8.9) K/mcL Lymphocytes # (0.6-4.6) K/mcL Monocytes # (0.0-1.3) K/mcL Eosinophils # (0.0-0.6) K/mcL Basophils # (0.0-0.2) K/mcL Sodium (136-145) mEq/L Potassium (3.5-5.1) mEq/L Chloride (98-107) mEq/L Carbon Dioxide (23-29) mEq/L BUN (6-20) mg/dL Creatinine (0.60-1.20) mg/dL Est GFR ( Amer) (> 60) Est GFR (Non-Af Amer) (> 60) BUN/Creatinine Ratio (6-26) Glucose (70-105) mg/dL Calculated Osmolality (280-300) Calcium (8.6-10.3) mg/dL Urine Color Yellow (Yellow) Urine Clarity Clear (Clear) Urine pH 6.5 (5.0-8.0) pH Units Ur Specific Leadore 1.020 (1.010-1.025) Urine Protein Negative (Neg-Trace) mg/dL Urine Glucose (UA) Normal (Normal) mg/dL Urine Ketones Negative (Negative) mg/dL Urine Blood Trace-intact H (Negative) Urine Nitrite Negative (Negative) Urine Bilirubin Negative (Negative) Urine Urobilinogen Normal (Normal) mg/dL Ur Leukocyte Esterase Negative (Negative) Urine Microscopic RBC 0-3 (0-3) per hpf Urine Microscopic WBC 0-3 (0-3) per hpf Ur Squamous Epith Cells Few (None-Few) per lpf Urine Bacteria Few (None-Few) per hpf Urine Test Negative (Negative) Salicylates (15.0-30.0) mg/dL Urine Opiates Screen Negative (Bkuyvp=164) ng/mL Acetaminophen (10-20) mcg/mL Ur Barbiturates Screen Negative (Nrdhiz=882) ng/mL Ur Phencyclidine Scrn Negative (Cutoff=25) ng/mL Ur Amphetamines Screen Negative (Ajalgc=1771) ng/mL U Benzodiazepines Scrn Negative (Gubsds=900) ng/mL Urine Cocaine Screen Negative (Cutoff= 300) ng/mL U Marijuana (THC) Screen Negative (Cutoff = 50) ng/mL Ur Drug Screen Interp See Below Ethyl Alcohol (Less than 10) mg/dL Specimen Rejected 04/07/18 04/07/18 04/07/18 Range/Units 16:31 16:31 16:31 WBC 9.2 (4.3-11.1) K/mcL RBC 4.66 (3.82-4.97) M/mcL Hgb 14.6 (11.5-15.4) g/dL Hct 41.9 (35.3-44.9) % MCV 89.9 (83.0-100.0) fL MCH 31.3 (28.0-33.3) pg MCHC 34.8 (31.6-35.5) g/dL RDW 11.9 (11.5-14.5) % Plt Count 232 (140-400) K/mcL MPV 9.8 (9.4-12.4) fL Immature Gran % 0.2 (0-4) % Seg Neutrophils % 79.1 % Lymphocytes % 15.4 % Monocytes % 4.5 % Eosinophils % 0.4 % Basophils % 0.4 % Neutrophils # 7.3 (1.6-8.9) K/mcL Lymphocytes # 1.4 (0.6-4.6) K/mcL Monocytes # 0.4 (0.0-1.3) K/mcL Eosinophils # 0.0 (0.0-0.6) K/mcL Basophils # 0.0 (0.0-0.2) K/mcL Sodium (136-145) mEq/L Potassium (3.5-5.1) mEq/L Chloride (98-107) mEq/L Carbon Dioxide (23-29) mEq/L BUN (6-20) mg/dL Creatinine (0.60-1.20) mg/dL Est GFR ( Amer) (> 60) Est GFR (Non-Af Amer) (> 60) BUN/Creatinine Ratio (6-26) Glucose (70-105) mg/dL Calculated Osmolality (280-300) Calcium (8.6-10.3) mg/dL Urine Color (Yellow) Urine Clarity (Clear) Urine pH (5.0-8.0) pH Units Ur Specific Leadore (1.010-1.025) Urine Protein (Neg-Trace) mg/dL Urine Glucose (UA) (Normal) mg/dL Urine Ketones (Negative) mg/dL Urine Blood (Negative) Urine Nitrite (Negative) Urine Bilirubin (Negative) Urine Urobilinogen (Normal) mg/dL Ur Leukocyte Esterase (Negative) Urine Microscopic RBC (0-3) per hpf Urine Microscopic WBC (0-3) per hpf Ur Squamous Epith Cells (None-Few) per lpf Urine Bacteria (None-Few) per hpf Urine Test (Negative) Salicylates < 2.5 L (15.0-30.0) mg/dL Urine Opiates Screen (Ydcady=283) ng/mL Acetaminophen < 10 L (10-20) mcg/mL Ur Barbiturates Screen (Qmjzmf=611) ng/mL Ur Phencyclidine Scrn (Cutoff=25) ng/mL Ur Amphetamines Screen (Qvlgwe=8256) ng/mL U Benzodiazepines Scrn (Krpqqp=063) ng/mL Urine Cocaine Screen (Cutoff= 300) ng/mL U Marijuana (THC) Screen (Cutoff = 50) ng/mL Ur Drug Screen Interp Ethyl Alcohol < 10 (Less than 10) mg/dL Specimen Rejected Hemolyzed 04/07/18 Range/Units 16:31 WBC (4.3-11.1) K/mcL RBC (3.82-4.97) M/mcL Hgb (11.5-15.4) g/dL Hct (35.3-44.9) % MCV (83.0-100.0) fL MCH (28.0-33.3) pg MCHC (31.6-35.5) g/dL RDW (11.5-14.5) % Plt Count (140-400) K/mcL MPV (9.4-12.4) fL Immature Gran % (0-4) % Seg Neutrophils % % Lymphocytes % % Monocytes % % Eosinophils % % Basophils % % Neutrophils # (1.6-8.9) K/mcL Lymphocytes # (0.6-4.6) K/mcL Monocytes # (0.0-1.3) K/mcL Eosinophils # (0.0-0.6) K/mcL Basophils # (0.0-0.2) K/mcL Sodium 139 (136-145) mEq/L Potassium 4.1 (3.5-5.1) mEq/L Chloride 107 (98-107) mEq/L Carbon Dioxide 24 (23-29) mEq/L BUN 14 (6-20) mg/dL Creatinine 0.81 (0.60-1.20) mg/dL Est GFR ( Amer) > 60 (> 60) Est GFR (Non-Af Amer) > 60 (> 60) BUN/Creatinine Ratio 17 (6-26) Glucose 96 (70-105) mg/dL Calculated Osmolality 288 (280-300) Calcium 9.9 (8.6-10.3) mg/dL Urine Color (Yellow) Urine Clarity (Clear) Urine pH (5.0-8.0) pH Units Ur Specific Leadore (1.010-1.025) Urine Protein (Neg-Trace) mg/dL Urine Glucose (UA) (Normal) mg/dL Urine Ketones (Negative) mg/dL Urine Blood (Negative) Urine Nitrite (Negative) Urine Bilirubin (Negative) Urine Urobilinogen (Normal) mg/dL Ur Leukocyte Esterase (Negative) Urine Microscopic RBC (0-3) per hpf Urine Microscopic WBC (0-3) per hpf Ur Squamous Epith Cells (None-Few) per lpf Urine Bacteria (None-Few) per hpf Urine Test (Negative) Salicylates (15.0-30.0) mg/dL Urine Opiates Screen (Ivmiaq=524) ng/mL Acetaminophen (10-20) mcg/mL Ur Barbiturates Screen (Jiqwco=227) ng/mL Ur Phencyclidine Scrn (Cutoff=25) ng/mL Ur Amphetamines Screen (Qwrvfm=1611) ng/mL U Benzodiazepines Scrn (Uueovq=115) ng/mL Urine Cocaine Screen (Cutoff= 300) ng/mL U Marijuana (THC) Screen (Cutoff = 50) ng/mL Ur Drug Screen Interp Ethyl Alcohol (Less than 10) mg/dL Specimen Rejected Psychiatric Medical Clearance - Medical Clearance Checklist Medical History: No Social History Section defined Current Vitals: Last Vital Signs Temp 97.7 F 04/07/18 15:52 Pulse 85 04/07/18 15:52 Resp 16 04/07/18 15:52 BP 175/90 04/07/18 15:52 Pulse Ox 98 04/07/18 15:52 Psychiatric Lab Panel: Drug Levels and Toxicity 04/07/18 04/07/18 16:15 16:31 Urine Opiates Screen Negative Acetaminophen < 10 L Ur Barbiturates Screen Negative Ur Phencyclidine Scrn Negative Ur Amphetamines Screen Negative U Benzodiazepines Scrn Negative Urine Cocaine Screen Negative U Marijuana (THC) Screen Negative Ethyl Alcohol < 10 Abnormal Labs: Abnormal lab results Urine Blood Trace-intact (Negative) H 04/07/18 16:15 Salicylates < 2.5 mg/dL (15.0-30.0) L 04/07/18 16:31 Acetaminophen < 10 mcg/mL (10-20) L 04/07/18 16:31 Statement of Medical Clearance: I have evaluated the patient, reviewed diagnostic information, and certify that the patient's medical condition is sufficiently stable that transfer to the psychiatric unit does not pose a significant risk of deterioration. Attestation Statement - Attestation Attestation: I, Ganesh Carmen DO, examined this patient [id number] and my medical decision-making was reviewed with Dr. Gage Marquis, Resident Physician. I agree with the documented findings, disposition and treatment plan as described except to the extent set forth below. Please see my progress notes for details.
--- NOTE | 2018-04-07 17:03 | Emergency Department Note ---
Disposition Clinical Impression: Depression, Suicidal ideation Disposition: Admitted As Inpatient Condition: Good Referrals: NONE,PCP [Primary Care Provider] - Forms: ED Satisfaction Letter Time of Disposition: 19:08 General Adult HPI - General Chief complaint: ED Psychiatric Symptoms Stated complaint: SI Time Seen by Provider: 04/07/18 16:17 Source: patient Limitations: no limitations - History of Present Illness Pain Scale: 0 - Related Data Home Medications Medication Instructions Recorded Confirmed Ergocalciferol (VITAMIN D2) 800 unit PO DAILY 11/03/17 03/28/18 [Vitamin D] Metoprolol Succinate [Toprol Xl] 50 mg PO HS 11/03/17 03/28/18 clonazePAM [Clonazepam] 0.5 mg PO TID PRN 11/03/17 03/28/18 Estradiol [Estrace] 1 mg PO DAILY 03/28/18 03/28/18 Lisinopril [Zestril] 5 mg PO DAILY 03/28/18 03/28/18 Medroxyprogesterone Acetate 5 mg PO DAILY 03/28/18 03/28/18 [Provera] Ondansetron HCl [Zofran] 4 mg PO BID PRN 03/28/18 03/28/18 Quetiapine Fumarate [Seroquel] 25 mg PO HS 03/28/18 03/28/18 Previous Rx's Medication Instructions Recorded ARIPiprazole [Abilify] 10 mg PO QAM #30 tablet 04/02/18 Escitalopram [Lexapro] 20 mg PO DAILY #30 tablet 04/02/18 Melatonin 6 mg PO HS tablet 04/02/18 clonazePAM [Klonopin] 1 mg PO HS 30 Days #30 tablet 04/02/18 hydrOXYzine pamoate [HydrOXYzine 25 mg PO TID PRN #90 capsule 04/02/18 Pamoate] Allergies Allergy/AdvReac Type Severity Reaction Status Date / Time No Known Allergies Allergy Verified 11/09/17 14:01 Past Medical History - Past Medical History Medical history: Reports: hypertension, renal disease Surgical history: Reports: angioplasty/stent Psychiatric history: Reports: anxiety, bipolar, depression, panic disorder, previous psychiatric hospitalization - Social History Smoking Status: Never smoker Smokeless Tobacco Status: No Alcohol use: Reports: none Drug use: Reports: none Physical Exam - General Limitations: no limitations General appearance: alert, in no apparent distress Course Vital Signs Temperature 97.7 F 04/07/18 15:52 Pulse Rate 85 04/07/18 15:52 Respiratory Rate 16 04/07/18 15:52 Blood Pressure 175/90 04/07/18 15:52 O2 Sat by Pulse Oximetry 98 04/07/18 15:52 Temperature 97.7 F 04/07/18 15:52 Pulse Rate 85 04/07/18 15:52 Respiratory Rate 16 04/07/18 15:52 Blood Pressure 175/90 04/07/18 15:52 O2 Sat by Pulse Oximetry 98 04/07/18 15:52 Oxygen Delivery Oxygen Delivery Room Air Medical Decision Making - Lab Data Result diagrams: 04/07/18 16:31 04/07/18 16:31 Lab Results 04/07/18 04/07/18 04/07/18 Range/Units 16:15 16:15 16:15 WBC (4.3-11.1) K/mcL RBC (3.82-4.97) M/mcL Hgb (11.5-15.4) g/dL Hct (35.3-44.9) % MCV (83.0-100.0) fL MCH (28.0-33.3) pg MCHC (31.6-35.5) g/dL RDW (11.5-14.5) % Plt Count (140-400) K/mcL MPV (9.4-12.4) fL Immature Gran % (0-4) % Seg Neutrophils % % Lymphocytes % % Monocytes % % Eosinophils % % Basophils % % Neutrophils # (1.6-8.9) K/mcL Lymphocytes # (0.6-4.6) K/mcL Monocytes # (0.0-1.3) K/mcL Eosinophils # (0.0-0.6) K/mcL Basophils # (0.0-0.2) K/mcL Sodium (136-145) mEq/L Potassium (3.5-5.1) mEq/L Chloride (98-107) mEq/L Carbon Dioxide (23-29) mEq/L BUN (6-20) mg/dL Creatinine (0.60-1.20) mg/dL Est GFR ( Amer) (> 60) Est GFR (Non-Af Amer) (> 60) BUN/Creatinine Ratio (6-26) Glucose (70-105) mg/dL Calculated Osmolality (280-300) Calcium (8.6-10.3) mg/dL Urine Color Yellow (Yellow) Urine Clarity Clear (Clear) Urine pH 6.5 (5.0-8.0) pH Units Ur Specific [place] 1.020 (1.010-1.025) Urine Protein Negative (Neg-Trace) mg/dL Urine Glucose (UA) Normal (Normal) mg/dL Urine Ketones Negative (Negative) mg/dL Urine Blood Trace-intact H (Negative) Urine Nitrite Negative (Negative) Urine Bilirubin Negative (Negative) Urine Urobilinogen Normal (Normal) mg/dL Ur Leukocyte Esterase Negative (Negative) Urine Microscopic RBC 0-3 (0-3) per hpf Urine Microscopic WBC 0-3 (0-3) per hpf Ur Squamous Epith Cells Few (None-Few) per lpf Urine Bacteria Few (None-Few) per hpf Urine Test Negative (Negative) Salicylates (15.0-30.0) mg/dL Urine Opiates Screen Negative (Aqznik=817) ng/mL Acetaminophen (10-20) mcg/mL Ur Barbiturates Screen Negative (Lwcnjv=364) ng/mL Ur Phencyclidine Scrn Negative (Cutoff=25) ng/mL Ur Amphetamines Screen Negative (Szzhyk=9226) ng/mL U Benzodiazepines Scrn Negative (Ofchvs=095) ng/mL Urine Cocaine Screen Negative (Cutoff= 300) ng/mL U Marijuana (THC) Screen Negative (Cutoff = 50) ng/mL Ur Drug Screen Interp See Below Ethyl Alcohol (Less than 10) mg/dL Specimen Rejected 04/07/18 04/07/18 04/07/18 Range/Units 16:31 16:31 16:31 WBC 9.2 (4.3-11.1) K/mcL RBC 4.66 (3.82-4.97) M/mcL Hgb 14.6 (11.5-15.4) g/dL Hct 41.9 (35.3-44.9) % MCV 89.9 (83.0-100.0) fL MCH 31.3 (28.0-33.3) pg MCHC 34.8 (31.6-35.5) g/dL RDW 11.9 (11.5-14.5) % Plt Count 232 (140-400) K/mcL MPV 9.8 (9.4-12.4) fL Immature Gran % 0.2 (0-4) % Seg Neutrophils % 79.1 % Lymphocytes % 15.4 % Monocytes % 4.5 % Eosinophils % 0.4 % Basophils % 0.4 % Neutrophils # 7.3 (1.6-8.9) K/mcL Lymphocytes # 1.4 (0.6-4.6) K/mcL Monocytes # 0.4 (0.0-1.3) K/mcL Eosinophils # 0.0 (0.0-0.6) K/mcL Basophils # 0.0 (0.0-0.2) K/mcL Sodium (136-145) mEq/L Potassium (3.5-5.1) mEq/L Chloride (98-107) mEq/L Carbon Dioxide (23-29) mEq/L BUN (6-20) mg/dL Creatinine (0.60-1.20) mg/dL Est GFR ( Amer) (> 60) Est GFR (Non-Af Amer) (> 60) BUN/Creatinine Ratio (6-26) Glucose (70-105) mg/dL Calculated Osmolality (280-300) Calcium (8.6-10.3) mg/dL Urine Color (Yellow) Urine Clarity (Clear) Urine pH (5.0-8.0) pH Units Ur Specific [place] (1.010-1.025) Urine Protein (Neg-Trace) mg/dL Urine Glucose (UA) (Normal) mg/dL Urine Ketones (Negative) mg/dL Urine Blood (Negative) Urine Nitrite (Negative) Urine Bilirubin (Negative) Urine Urobilinogen (Normal) mg/dL Ur Leukocyte Esterase (Negative) Urine Microscopic RBC (0-3) per hpf Urine Microscopic WBC (0-3) per hpf Ur Squamous Epith Cells (None-Few) per lpf Urine Bacteria (None-Few) per hpf Urine Test (Negative) Salicylates < 2.5 L (15.0-30.0) mg/dL Urine Opiates Screen (Otskgq=882) ng/mL Acetaminophen < 10 L (10-20) mcg/mL Ur Barbiturates Screen (Bfidhi=218) ng/mL Ur Phencyclidine Scrn (Cutoff=25) ng/mL Ur Amphetamines Screen (Xvazec=7726) ng/mL U Benzodiazepines Scrn (Fvaepr=082) ng/mL Urine Cocaine Screen (Cutoff= 300) ng/mL U Marijuana (THC) Screen (Cutoff = 50) ng/mL Ur Drug Screen Interp Ethyl Alcohol < 10 (Less than 10) mg/dL Specimen Rejected Hemolyzed 04/07/18 Range/Units 16:31 WBC (4.3-11.1) K/mcL RBC (3.82-4.97) M/mcL Hgb (11.5-15.4) g/dL Hct (35.3-44.9) % MCV (83.0-100.0) fL MCH (28.0-33.3) pg MCHC (31.6-35.5) g/dL RDW (11.5-14.5) % Plt Count (140-400) K/mcL MPV (9.4-12.4) fL Immature Gran % (0-4) % Seg Neutrophils % % Lymphocytes % % Monocytes % % Eosinophils % % Basophils % % Neutrophils # (1.6-8.9) K/mcL Lymphocytes # (0.6-4.6) K/mcL Monocytes # (0.0-1.3) K/mcL Eosinophils # (0.0-0.6) K/mcL Basophils # (0.0-0.2) K/mcL Sodium 139 (136-145) mEq/L Potassium 4.1 (3.5-5.1) mEq/L Chloride 107 (98-107) mEq/L Carbon Dioxide 24 (23-29) mEq/L BUN 14 (6-20) mg/dL Creatinine 0.81 (0.60-1.20) mg/dL Est GFR ( Amer) > 60 (> 60) Est GFR (Non-Af Amer) > 60 (> 60) BUN/Creatinine Ratio 17 (6-26) Glucose 96 (70-105) mg/dL Calculated Osmolality 288 (280-300) Calcium 9.9 (8.6-10.3) mg/dL Urine Color (Yellow) Urine Clarity (Clear) Urine pH (5.0-8.0) pH Units Ur Specific [place] (1.010-1.025) Urine Protein (Neg-Trace) mg/dL Urine Glucose (UA) (Normal) mg/dL Urine Ketones (Negative) mg/dL Urine Blood (Negative) Urine Nitrite (Negative) Urine Bilirubin (Negative) Urine Urobilinogen (Normal) mg/dL Ur Leukocyte Esterase (Negative) Urine Microscopic RBC (0-3) per hpf Urine Microscopic WBC (0-3) per hpf Ur Squamous Epith Cells (None-Few) per lpf Urine Bacteria (None-Few) per hpf Urine Test (Negative) Salicylates (15.0-30.0) mg/dL Urine Opiates Screen (Geufay=721) ng/mL Acetaminophen (10-20) mcg/mL Ur Barbiturates Screen (Ghsfpd=914) ng/mL Ur Phencyclidine Scrn (Cutoff=25) ng/mL Ur Amphetamines Screen (Nigbvn=1643) ng/mL U Benzodiazepines Scrn (Rarsys=097) ng/mL Urine Cocaine Screen (Cutoff= 300) ng/mL U Marijuana (THC) Screen (Cutoff = 50) ng/mL Ur Drug Screen Interp Ethyl Alcohol (Less than 10) mg/dL Specimen Rejected Attestation Statement - Attestation Attestation: I, Ganesh Carmen DO, examined this patient [id number] and my medical decision-making was reviewed with Dr. Gage Marquis, Resident Physician. I agree with the documented findings, disposition and treatment plan as described except to the extent set forth below. Please see my progress notes for details. 47-year-old female presents emergency room for evaluation of depression with suicidal thoughts. She thought about taking her car driving and oncoming traffic her into a tree off bridge. This is typical of her suicidal ideation with her depression. He does have underlying depression but over the last 6 months she has had progressively worsening symptoms. She has had multiple medication changes as well as hormone therapy started by [facility] Dr. Romero. Patient is currently denying any chest pain or shortness of breath. No fevers no chills. No nausea vomiting or diarrhea. No headache or vision change. Denies any falls trauma or injury. Her main issue at this point his medication changed to Abilify one week ago and then symptoms of been progressively getting worse. Patient will medical screening evaluation completed at this time looking for any other potential substance abuse related issues and psychiatric screening will be completed. Patient's physical exam is unremarkable. Head is atraumatic. Pupils are equal and reactive. Lungs are clear heart is regular. Abdomen is soft. No other acute findings noted during this treatment course. Patient will be monitored in emergency room Department of disposition is determined. Ignacio slip will be signed for patient protection treatment course to be completed. See detailed documentation the physical exam, medical intervention, medical decision-making and disposition in the resident physician's note. No critical care pad the patient's treatment course at this time. 1800 Patient is medically clear this time. Psychiatric team has been contacted for their evaluation. No other acute concerns or issues noted at this point. 1900 Patient was evaluated by the psychiatric team. They recommended admission at this time. Patient had the replacement orders established at this point and the patient will be admitted for continuation of care. No other acute issues noted this time. Patient is otherwise clinically stable.
[2018-04-07 17:18] LABS: Acetaminophen < 10 mcg/mL (10-20); Ethanol < 10 mg/dL (Less than 10); Salicylate < 2.5 mg/dL (15.0-30.0)
[2018-04-07 17:42] LABS: BUN/Creatinine Ratio 17 (6-26); Blood Urea Nitrogen 14 mg/dL (6-20); Calcium 9.9 mg/dL (8.6-10.3); Carbon Dioxide 24 mEq/L (23-29); Chloride 107 mEq/L (98-107); Glucose 96 mg/dL (70-105); Osmolality,Calculated 288 (280-300); Potassium 4.1 mEq/L (3.5-5.1); Sodium 139 mEq/L (136-145); eGFR For Non-African Americans > 60 (> 60)
[2018-04-07] MEDS ORDERED: traZODone 50 MG TABLET PO PRN (19:39)
[2018-04-07] MEDS ORDERED: Haloperidol Lactate 5 MG/ML VIAL IM PRN (19:39)
[2018-04-07] MEDS ORDERED: Ibuprofen 400 MG TABLET PO PRN (19:39)
[2018-04-07] MEDS ORDERED: MOM Conc 10 ML UD.LIQ PO PRN (19:39)
[2018-04-07] MEDS ORDERED: Mag Hydrox/Al Hydrox/Simeth 30 ML UDC PO PRN (19:39)
[2018-04-07] MEDS ORDERED: *HR* LORazepam 1 MG TABLET PO PRN (19:39)
[2018-04-07] MEDS ORDERED: *HR* LORazepam 2 MG/ML VIAL IM PRN (19:39)
[2018-04-07] MEDS ORDERED: hydrOXYzine pamoate 25 MG CAPSULE PO PRN (19:39)
[2018-04-07] MEDS ORDERED: Ondansetron ODT 4 MG TAB.RAPDIS PO PRN (19:41)
[2018-04-07] MEDS: Metoprolol XL (24 HR) Succ 50 MG TAB.ER.24H PO SCH (20:27)
[2018-04-07] MEDS: Melatonin 3 MG TABLET PO SCH (20:28)
[2018-04-07] MEDS: clonazePAM 0.5 MG TABLET PO PRN (20:32)
[2018-04-08] MEDS: Cholecalciferol (D-3) 1,000 UNIT TABLET PO SCH (08:39)
--- NOTE | 2018-04-08 10:18 | Psychiatry History & Physical ---
Date of Encounter: 04/08/18 Time of Encounter: 10:03 History of Present Illness Patient Stated Chief Complaint: suicidal ideation Medicare Admission Attestation: For traditional Medicare patients the provided hospital inpatient services are reasonable and necessary and in the case of services not specified as inpatient-only under 42 CFR 419.22 (n), that they are appropriately provided as inpatient services in accordance 42 CFR 412.3. For Critical Access Hospital the patient may reasonably be expected to be discharged or transferred to a hospital within 96 hours after admission to the Critical Access Hospital. Admitted From: Home Plans for Post Hospital Care: Home History of Present Illness: Ms. 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 Client reports she was feeling so anxious she was considering driving her car off of the road. The way client describes the sensations, it sounds like akathesia. She was started on Abilify during her inpatient admission last week. Client was noticing some restlessness after the medication was started but thought it was more anxiety. However, after she returned home the restlessness worsened to the point that she was pacing and exercising nonstop. Client states she could not relax or take a nap. Ultimately represented to the ER for help. Client states she has suffered from depression for years. No history of suicide attempts but has had SI off and on. Two previous admissions. Took Lexapro for 16 years with good success. However, developed some tachyphylaxis and Lexapro was stopped. Has been off and on different antidepressants ever since with limited success. Client reports intolerable side effects (mostly restlessness) with many of them. Past med trials have included Prozac, Paxil, Zoloft, Lexapro, Luvox, Effexor, Cymbalta, Wellbutrin, Remeron, Vibrid, and Hormone Replacement Therapy. Currently on Lexapro, Seroquel for sleep, and prn Klonopin and Vistaril for anxiety. Abilify was the most recent addition but this has now been stopped due to the akathesia. Client is physically healthy except for Polycystic Kidney Disease and associated HTN. No AOD use. Strong family history of depression. Client reports Major Depression is rampant in her family. She also had a brother with Paranoid Schizophrenia who committed suicide and two siblings who were previously addicted to heroin. At this point client reports her mood is very low with some SI. Poor sleep, poor appetite, anxiety and anhedonia. Discussed options. Client thinks she responded well to the Effexor in the past and only stopped it because she wanted to get at the time. At this point it wou ld likely be a better choice than the Lexapro since it will work on two different neurotransmitters. The one concern is client's HTN and the potential for Effexor to raise blood pressure. Client is willing to accept this risk and staff will monitor vitals. Client has clear treatment resistant depression and would qualify for nonpharmacological options at this point like ECT or TMS. Client states she is not interested in either of those options at this time but is grateful to know there are other treatments out there. Past Med Surg Social Fam HX - Past Medical History Medical history: hypertension, renal disease - Past Psychiatric History Psychiatric history: Reports: depression, previous psychiatric hospitalization Family psychiatric history: Yes Family Psychiatric History Details: majority of family has major depression, brother had paranoid schizophrenia, two siblings previously addicted to heroin Family History of Suicide: Completed Family Suicide History Details: brother - Past Surgical History Surgical History: angioplasty/stent - Social History Smoking Status: Never smoker Smokeless Tobacco Status: No Alcohol use: none Drug use: none Medications & Allergies Ergocalciferol (VITAMIN D2) [Vitamin D] 800 unit PO DAILY 11/03/17 [History] Metoprolol Succinate [Toprol Xl] 50 mg PO HS 11/03/17 [History] clonazePAM [Clonazepam] 0.5 mg PO TID PRN 11/03/17 [History] Lisinopril [Zestril] 5 mg PO DAILY 03/28/18 [History] Ondansetron HCl [Zofran] 4 mg PO BID PRN 03/28/18 [History] Quetiapine Fumarate [Seroquel] 50 mg PO HS 03/28/18 [History] Escitalopram [Lexapro] 20 mg PO DAILY #30 tablet 04/02/18 [Rx] Melatonin 6 mg PO HS tablet 04/02/18 [Rx] hydrOXYzine pamoate [HydrOXYzine Pamoate] 25 mg PO TID PRN #90 capsule 04/02/18 [Rx] ARIPiprazole [Abilify] 5 mg PO QAM 04/07/18 [History] Allergy/AdvReac Type Severity Reaction Status Date / Time No Known Allergies Allergy Verified 11/09/17 14:01 Review of Systems Constitutional: Denies: fever, chills, weakness, weight change Eyes: Denies: eye pain, vision change Ears, Nose, Throat: Denies: ear pain, throat pain, dental pain, hearing loss, congestion Cardiovascular: Denies: chest pain, palpitations, dyspnea on exertion Respiratory: Denies: cough, dyspnea, wheezes Gastrointestinal: Denies: abdominal pain, nausea, vomiting, diarrhea, constipation Genitourinary female: Denies: urgency, dysuria, frequency, abnormal menses, dyspareunia Musculoskeletal: Denies: joint swelling, joint pain Integumentary: Denies: rash, lesions, pruritus Neurological: Denies: headache, weakness, numbness, memory loss Endocrine: Denies: fatigue, heat or cold intolerance Hematologic/Lymphatic: Denies: easy bruising, lymphadenopathy Allergic/Immunologic: Denies: urticaria, itchy eyes Exam - HEENT Head exam IM: Present: atraumatic Eye exam IM: Present: EOMI, normal appearance, PERRL ENT exam IM: Present: normal exam - Neurological Neurological exam: Present: CN II-XII intact - Respiratory Respiratory exam IM: Present: CTAB - GI/Abdominal GI/Abdominal exam IM: Present: normal bowel sounds, soft. Absent: tenderness - Extremities Extremities exam IM: Present: full ROM - Skin Skin exam IM: Present: dry, warm - Constitutional Vitals: Temp Pulse Resp BP Pulse Ox 98.4 F 61 16 120/81 100 04/08/18 09:00 04/08/18 09:00 04/08/18 09:00 04/08/18 09:00 04/08/18 09:00 General appearance: age & developmentally appropriate, well-groomed, well- nourished - Musculoskeletal Gait: normal Station: relaxed Strength & Tone: normal for patient - Psychiatric Patient Orientation: Yes Person, Yes Time, Yes Place Level of alertness: Alert Behavior: calm, cooperative Psychomotor activity: Normal Eye Contact: Maintains Eye Contact Mood Description: Depressed, Anxious Affect description: tearful Speech Volume: Normal Speech pattern: normal rate, normal rhythm, normal tone, fluent, spontaneous Language & Vocabulary: consistent with education Thought Process: Linear Thought Content: Yes Suicidal ideation, No Homicidal ideation, No Overt delusions Perceptual Disturbances: No Reacting to internal stimuli, No Auditory hallucinations, No Visual hallucinations Attention Span Ability: Capable of Focused Attention Memory Description: Grossly Intact Patient Reliability: Reliable Historian Fund of knowledge: Yes abstraction ability, Yes average, Yes aware of current events Intelligence Estimate: Average Judgment: Fair Insight: Partial Results - Drug Levels and Toxicology Drug Levels and Toxicology: Drug Levels and Toxicity 04/07/18 04/07/18 16:15 16:31 Urine Opiates Screen Negative Acetaminophen < 10 L Ur Barbiturates Screen Negative Ur Phencyclidine Scrn Negative Ur Amphetamines Screen Negative U Benzodiazepines Scrn Negative Urine Cocaine Screen Negative U Marijuana (THC) Screen Negative Ethyl Alcohol < 10 - Labs Labs: Laboratory Last Values WBC 9.2 K/mcL (4.3-11.1) 04/07/18 16:31 RBC 4.66 M/mcL (3.82-4.97) 04/07/18 16:31 Hgb 14.6 g/dL (11.5-15.4) 04/07/18 16:31 Hct 41.9 % (35.3-44.9) 04/07/18 16:31 MCV 89.9 fL (83.0-100.0) 04/07/18 16:31 MCH 31.3 pg (28.0-33.3) 04/07/18 16:31 MCHC 34.8 g/dL (31.6-35.5) 04/07/18 16:31 RDW 11.9 % (11.5-14.5) 04/07/18 16:31 Plt Count 232 K/mcL (140-400) 04/07/18 16:31 MPV 9.8 fL (9.4-12.4) 04/07/18 16:31 Immature Gran % 0.2 % (0-4) 04/07/18 16:31 Seg Neutrophils % 79.1 % 04/07/18 16:31 Lymphocytes % 15.4 % 04/07/18 16:31 Monocytes % 4.5 % 04/07/18 16:31 Eosinophils % 0.4 % 04/07/18 16:31 Basophils % 0.4 % 04/07/18 16:31 Neutrophils # 7.3 K/mcL (1.6-8.9) 04/07/18 16:31 Lymphocytes # 1.4 K/mcL (0.6-4.6) 04/07/18 16:31 Monocytes # 0.4 K/mcL (0.0-1.3) 04/07/18 16:31 Eosinophils # 0.0 K/mcL (0.0-0.6) 04/07/18 16:31 Basophils # 0.0 K/mcL (0.0-0.2) 04/07/18 16:31 Sodium 139 mEq/L (136-145) 04/07/18 16:31 Potassium 4.1 mEq/L (3.5-5.1) 04/07/18 16:31 Chloride 107 mEq/L (98-107) 04/07/18 16:31 Carbon Dioxide 24 mEq/L (23-29) 04/07/18 16:31 BUN 14 mg/dL (6-20) 04/07/18 16:31 Creatinine 0.81 mg/dL (0.60-1.20) 04/07/18 16:31 Est GFR ( Amer) > 60 (> 60) 04/07/18 16:31 Est GFR (Non-Af Amer) > 60 (> 60) 04/07/18 16:31 BUN/Creatinine Ratio 17 (6-26) 04/07/18 16:31 Glucose 96 mg/dL (70-105) 04/07/18 16:31 Calculated Osmolality 288 (280-300) 04/07/18 16:31 Calcium 9.9 mg/dL (8.6-10.3) 04/07/18 16:31 Urine Color Yellow (Yellow) 04/07/18 16:15 Urine Clarity Clear (Clear) 04/07/18 16:15 Urine pH 6.5 pH Units (5.0-8.0) 04/07/18 16:15 Ur Specific [place] 1.020 (1.010-1.025) 04/07/18 16:15 Urine Protein Negative mg/dL (Neg-Trace) 04/07/18 16:15 Urine Glucose (UA) Normal mg/dL (Normal) 04/07/18 16:15 Urine Ketones Negative mg/dL (Negative) 04/07/18 16:15 Urine Blood Trace-intact (Negative) H 04/07/18 16:15 Urine Nitrite Negative (Negative) 04/07/18 16:15 Urine Bilirubin Negative (Negative) 04/07/18 16:15 Urine Urobilinogen Normal mg/dL (Normal) 04/07/18 16:15 Ur Leukocyte Esterase Negative (Negative) 04/07/18 16:15 Urine Microscopic RBC 0-3 per hpf (0-3) 04/07/18 16:15 Urine Microscopic WBC 0-3 per hpf (0-3) 04/07/18 16:15 Ur Squamous Epith Cells Few per lpf (None-Few) 04/07/18 16:15 Urine Bacteria Few per hpf (None-Few) 04/07/18 16:15 Urine Test Negative (Negative) 04/07/18 16:15 Salicylates < 2.5 mg/dL (15.0-30.0) L 04/07/18 16:31 Urine Opiates Screen Negative ng/mL (Mgpzoe=869) 04/07/18 16:15 Acetaminophen < 10 mcg/mL (10-20) L 04/07/18 16:31 Ur Barbiturates Screen Negative ng/mL (Oautws=974) 04/07/18 16:15 Ur Phencyclidine Scrn Negative ng/mL (Cutoff=25) 04/07/18 16:15 Ur Amphetamines Screen Negative ng/mL (Wrigkd=3529) 04/07/18 16:15 U Benzodiazepines Scrn Negative ng/mL (Pxwsad=240) 04/07/18 16:15 Urine Cocaine Screen Negative ng/mL (Cutoff= 300) 04/07/18 16:15 U Marijuana (THC) Screen Negative ng/mL (Cutoff = 50) 04/07/18 16:15 Ur Drug Screen Interp See Below 04/07/18 16:15 Ethyl Alcohol < 10 mg/dL (Less than 10) 04/07/18 16:31 Specimen Rejected Hemolyzed 04/07/18 16:31 Assessment and Plan (1) Major depressive disorder, recurrent severe without psychotic features Current visit: No Status: Acute Plan: Admit inpatient for safety and stabilization, Close observation, Suicide Precautions per unit protocol, Encourage participation in unit milieu, Group Therapy, Monitor sleep, Monitor appetite Risks, benefits, side effects, alternatives discussed w/pt: Yes Patient agreeable to treatment: Yes Plans for Post Hospital Care: Home Estimated Length of Stay (Days): 4
[2018-04-08] MEDS: clonazePAM 0.5 MG TABLET PO PRN (20:34)
[2018-04-08] MEDS: Metoprolol XL (24 HR) Succ 50 MG TAB.ER.24H PO SCH (20:35)
[2018-04-08] MEDS: Melatonin 3 MG TABLET PO SCH (20:35)
[2018-04-09] MEDS ORDERED: Venlafaxine XR (24 HR) 37.5 MG CAP.ER.24H PO SCH (09:00)
--- NOTE | 2018-04-09 09:39 | Discharge Summary ---
Date of Encounter: 04/09/18 Time of Encounter: 09:36 Diagnosis - Discharge Diagnosis (1) Major depressive disorder, recurrent severe without psychotic features Status: Acute Medications - Discharge Medications Prescriptions: Venlafaxine XR (24 HR) [Effexor Xr] 37.5 mg PO DAILY #30 cap.er.24h Ergocalciferol (VITAMIN D2) [Vitamin D] 800 unit PO DAILY 11/03/17 [History] Metoprolol Succinate [Toprol Xl] 50 mg PO HS 11/03/17 [History] clonazePAM [Clonazepam] 0.5 mg PO TID PRN 11/03/17 [History] Lisinopril [Zestril] 5 mg PO DAILY 03/28/18 [History] Ondansetron HCl [Zofran] 4 mg PO BID PRN 03/28/18 [History] Quetiapine Fumarate [Seroquel] 50 mg PO HS 03/28/18 [History] Melatonin 6 mg PO HS tablet 04/02/18 [Rx] hydrOXYzine pamoate [HydrOXYzine Pamoate] 25 mg PO TID PRN #90 capsule 04/02/18 [Rx] ARIPiprazole [Abilify] 5 mg PO QAM 04/07/18 [History] Venlafaxine XR (24 HR) [Effexor Xr] 37.5 mg PO DAILY #30 cap.er.24h 04/09/18 [Rx] Allergy/AdvReac Type Severity Reaction Status Date / Time No Known Allergies Allergy Verified 11/09/17 14:01 Results Procedures and tests throughout hospitalization: Completed Lab Orders Category Date Time Status Acetaminophen Stat Lab 04/07/18 16:31 Completed Basic Metabolic Panel Stat Lab 04/07/18 16:31 Completed Complete Blood Count [HEME] Stat Lab 04/07/18 16:31 Completed Drug Screen, Urine [UCHEM] Stat Lab 04/07/18 16:15 Completed Ethanol Stat Lab 04/07/18 16:31 Completed Test Result, Urine [URIN] Stat Lab 04/07/18 16:15 Completed Salicylate Stat Lab 04/07/18 16:31 Completed Urinalysis reflex Microscopic [URIN] Stat Lab 04/07/18 16:15 Completed Provider Date of admission: 04/07/18 19:18 Primary care physician: PCP NONE Discharging clinician: Michelle Borrego Psychiatry Exam - Constitutional Vitals: Temp Pulse Resp BP Pulse Ox 97.3 F L 66 16 120/73 97 04/08/18 19:29 04/08/18 19:29 04/08/18 19:29 04/08/18 19:29 04/08/18 19:29 General appearance: age & developmentally appropriate, well-groomed, well- nourished - Musculoskeletal Gait: normal Station: relaxed Strength & Tone: normal for patient - Psychiatric Patient Orientation: Yes Person, Yes Time, Yes Place Level of alertness: Alert Behavior: calm, cooperative Psychomotor activity: Normal Eye Contact: Maintains Eye Contact Mood Description: Anxious Affect description: congruent with mood Speech Volume: Normal Speech pattern: normal rate, normal rhythm, normal tone, fluent, spontaneous Language & Vocabulary: consistent with education Thought Process: Linear, Goal Oriented Thought Content: No Suicidal ideation, No Homicidal ideation, No Overt delusions Perceptual Disturbances: No Auditory hallucinations, No Visual hallucinations Attention Span Ability: Capable of Focused Attention Memory Description: Grossly Intact Patient Reliability: Reliable Historian Fund of knowledge: Yes abstraction ability, Yes aware of current events Intelligence Estimate: Average Judgment: Fair Insight: Partial Hospital Course Hospital course: Ms. Connell is a 47 year old female who was admitted secondary to SI. Client had been discharged from a week ago for worsening depression. Abilify had been added to her home regimen during that admission. Client developed some akathesia side effects to the Abilify after discharge and her restlessness was so severe she reported she was thinking of driving her car off the road but represented to the hospital instead. At the time of admission her Abilify was stopped and she quickly improved. Her home medication of Lexapro was also changed to Effexor as client felt she had benefitted more from Effexor in the past and had only stopped it because she wanted to get . Client started denying SI as soon as the restlessness improved. She was not interested in staying in the hospital as she had just completed an inpatient stay the week prior. Her mood was improved and she reported the SI at the time of admission was directly tied to the akathesia and went away as soon as the restlessness went away. Client was eager to return home to her family. Today she is brighter with a reactive affect and an improved mood. She is future oriented and denying SI/HI/AH/VH. She has a follow up appointment with her Psychiatrist on Wednesday. Feels safe for discharge. Total time spent with client greater than 30 minutes. - Time Spent with Patient Total time spent providing and/or coordinating discharge services: Assessment and Plan - Patient/Caregiver Discharge Instructions Activity: resume usual activities as tolerated Diet: regular diet - Follow up Plan Follow up with: NONE,PCP [Primary Care Provider] - Functional capacity at discharge: independent ambulation Overall status at discharge: Stable Disposition: Home, Self-Care Quality - Multiple Antipsychotics Patient discharged on 2 or more antipsychotic medications: No Procedures - Procedures Procedures: Medication Management, Crisis Stabilization, Supportive Therapy, Group Therapy
[2018-04-09] MEDS: Cholecalciferol (D-3) 1,000 UNIT TABLET PO SCH (09:46)
[2018-04-09 09:53] VITALS: BP 117/82
== END 2018-04-09 10:40 | disposition home or self-care (01) | DRG 885 ==
LOC: EMEROOARM 15:45 → 1ANU 19:18
PROVIDERS: ADMIT Psychiatry & Neurology Psychiatry; ATTEND Psychiatry & Neurology Psychiatry

== ENCOUNTER 2019-01-11 08:50 | Inpatient (IN) ==
[2019-01-11 09:30] LABS: Basophils % 0.3 %; Eosinophils # 0.1 K/mcL (0.0-0.6); Eosinophils % 0.7 %; Hematocrit 43.2 % (35.3-44.9); Hemoglobin 14.7 g/dL (11.5-15.4); Immature Granulocytes % 0.1 % (0-4); Lymphocytes # 1.2 K/mcL (0.6-4.6); Lymphocytes % 16.6 %; Mean Corpuscular Hemoglobin 31.8 pg (28.0-33.3); Mean Corpuscular Volume 93.5 fL (83.0-100.0); Mean Platelet Volume 9.9 fL (9.4-12.4); Monocytes # 0.3 K/mcL (0.0-1.3); Monocytes % 4.6 %; Neutrophils # 5.4 K/mcL (1.6-8.9); Platelet Count 213 K/mcL (140-400); Red Blood Count 4.62 M/mcL (3.82-4.97); Red Cell Distribution Width 12.4 % (11.5-14.5); Segmented Neutrophils % 77.7 %
[2019-01-11 09:47] LABS: Acetaminophen < 10 mcg/mL (10-20); BUN/Creatinine Ratio 11 (6-26); Blood Urea Nitrogen 10 mg/dL (6-20); Calcium 9.7 mg/dL (8.6-10.3); Carbon Dioxide 28 mEq/L (23-29); Chloride 105 mEq/L (98-107); Chol/HDL Ratio 3.4 (0-4.9); Cholesterol 171 mg/dL (< 200); Ethanol < 10 mg/dL (Less than 10); Glucose 104 mg/dL (70-105); HDL Cholesterol 51 mg/dL (40-59); LDL Cholesterol,Calculated 101 mg/dL (0-99); Osmolality,Calculated 285 (280-300); Potassium 4.1 mEq/L (3.5-5.1); Salicylate < 2.5 mg/dL (15.0-30.0); Sodium 138 mEq/L (136-145); Triglycerides 95 mg/dL (< 150); eGFR For African Americans > 60 (> 60); eGFR For Non-African Americans > 60 (> 60)
[2019-01-11 09:50] LABS: Estimated Average Glucose 111 mg/dl
[2019-01-11 09:52] LABS: Bilirubin,Urine Negative (Negative); Blood,Urine Negative (Negative); Clarity,Urine Clear (Clear); Color,Urine Yellow (Yellow); Glucose,Urine (UA) Normal (Normal); Ketones,Urine Negative (Negative); Leukocyte Esterase,Urine Trace (Negative); Nitrite,Urine Negative (Negative); PH,Urine 7.5 pH Units (5.0-8.0); Protein,Urine Negative (Neg-Trace); Urobilinogen,Urine Normal (Normal)
[2019-01-11 09:56] LABS: Bacteria,Urine None Seen per hpf (None-Few); Hyaline Casts,Urine None Seen per lpf (None-Few); RBC,Urine 0-3 per hpf (0-3); Squamous Epithelial Cell,Urine Moderate per lpf (None-Few); WBC,Urine 0-3 per hpf (0-3)
[2019-01-11 10:00] LABS: Amphetamine Screen,Urine Negative ng/mL (Cutoff=1000); Barbiturate Screen,Urine Negative ng/mL (Cutoff=200); Benzodiazepines Screen,Urine Negative ng/mL (Cutoff=200); Cannabinoid Screen,Urine Negative ng/mL (Cutoff = 50); Cocaine Screen,Urine Negative ng/mL (Cutoff= 300); Opiate Screen,Urine Negative ng/mL (Cutoff=300); Phencyclidine Screen,Urine Negative ng/mL (Cutoff=25)
[2019-01-11] MEDS ORDERED: traZODone 50 MG TABLET PO PRN (12:18)
[2019-01-11] MEDS ORDERED: Haloperidol Lactate 5 MG/ML VIAL IM PRN (12:18)
[2019-01-11] MEDS ORDERED: hydrOXYzine pamoate 25 MG CAPSULE PO PRN (12:18)
[2019-01-11] MEDS ORDERED: *HR* LORazepam 2 MG/ML VIAL IM PRN (12:18)
[2019-01-11] MEDS ORDERED: Mag Hydrox/Al Hydrox/Simeth 30 ML UDC PO PRN (12:18)
[2019-01-11] MEDS ORDERED: *HR* LORazepam 1 MG TABLET PO PRN (12:18)
[2019-01-11] MEDS ORDERED: MOM Conc 10 ML UD.LIQ PO PRN (12:18)
[2019-01-11] MEDS ORDERED: cloNIDine HCl 0.1 MG TABLET PO SCH (21:00)
[2019-01-11] MEDS ORDERED: Melatonin 3 MG TABLET PO SCH (21:00)
[2019-01-11] MEDS: Metoprolol XL (24 HR) Succ 50 MG TAB.ER.24H PO SCH (22:23)
[2019-01-11] MEDS: clonazePAM 1 MG TABLET PO SCH (22:23)
[2019-01-12] MEDS: Acetaminophen 325 MG TABLET PO PRN (02:54)
[2019-01-12] MEDS: Cholecalciferol (D-3) 1,000 UNIT (25MCG) TABLET PO SCH (08:56)
[2019-01-12] MEDS ORDERED: (Vortioxetine Hydrobromide [Trintellix] 5 MG) PO SCH (09:00)
[2019-01-12] MEDS: (Vortioxetine Hydrobromide [Trintellix] 10 MG) PO SCH (13:08)
[2019-01-12] MEDS: clonazePAM 1 MG TABLET PO SCH (21:47)
[2019-01-12] MEDS: Metoprolol XL (24 HR) Succ 50 MG TAB.ER.24H PO SCH (21:48)
[2019-01-12] MEDS: Melatonin 3 MG TABLET PO SCH (21:48)
[2019-01-13] MEDS: (Vortioxetine Hydrobromide [Trintellix] 10 MG) PO SCH (08:47)
[2019-01-13] MEDS: Cholecalciferol (D-3) 1,000 UNIT (25MCG) TABLET PO SCH (08:47)
[2019-01-13] MEDS: Melatonin 3 MG TABLET PO SCH (21:57)
[2019-01-13] MEDS: Acetaminophen 325 MG TABLET PO PRN (21:57)
[2019-01-13] MEDS: clonazePAM 1 MG TABLET PO SCH (21:58)
[2019-01-13] MEDS: Mirtazapine 15 MG TABLET PO SCH (21:58)
[2019-01-13] MEDS: Metoprolol XL (24 HR) Succ 50 MG TAB.ER.24H PO SCH (22:00)
[2019-01-14] MEDS: Cholecalciferol (D-3) 1,000 UNIT (25MCG) TABLET PO SCH (08:35)
[2019-01-14] MEDS: (Vortioxetine Hydrobromide [Trintellix] 10 MG) PO SCH (08:36)
[2019-01-14] MEDS ORDERED: TRINTELLIX 5 MG PO ONE (11:00)
[2019-01-14] MEDS: Mirtazapine 15 MG TABLET PO SCH (21:57)
[2019-01-14] MEDS: Metoprolol XL (24 HR) Succ 50 MG TAB.ER.24H PO SCH (22:00)
[2019-01-14] MEDS: clonazePAM 1 MG TABLET PO SCH (22:01)
[2019-01-14] MEDS: Melatonin 3 MG TABLET PO SCH (22:01)
[2019-01-15] MEDS ORDERED: TRINTELLIX 5 MG PO SCH (09:00)
[2019-01-15] MEDS ORDERED: (Vortioxetine Hydrobromide [Trintellix] 10 MG) PO SCH (09:00)
[2019-01-15 09:38] VITALS: BP 132/80
[2019-01-15] MEDS: Cholecalciferol (D-3) 1,000 UNIT (25MCG) TABLET PO SCH (09:49)
== END 2019-01-15 11:25 | disposition home or self-care (01) | DRG 885 ==
LOC: EMEROOARM 08:50 → 1ANU 12:14
PROVIDERS: ADMIT Psychiatry & Neurology Psychiatry; ATTEND Psychiatry & Neurology Psychiatry

== ENCOUNTER 2019-09-22 09:34 | Inpatient (IN) ==
[2019-09-22 10:15] LABS: Basophils % 0.3 %; Eosinophils % 0.6 %; Hematocrit 42.3 % (35.3-44.9); Hemoglobin 14.2 g/dL (11.5-15.4); Immature Granulocytes % 0.1 % (0-4); Lymphocytes # 0.9 K/mcL (0.6-4.6); Lymphocytes % 13.2 %; Mean Corpuscular HGB Conc 33.6 g/dL (31.6-35.5); Mean Corpuscular Hemoglobin 30.9 pg (28.0-33.3); Monocytes # 0.3 K/mcL (0.0-1.3); Monocytes % 4.5 %; Neutrophils # 5.6 K/mcL (1.6-8.9); Platelet Count 198 K/mcL (140-400); Segmented Neutrophils % 81.3 %; White Blood Count 6.9 K/mcL (4.3-11.1)
[2019-09-22 10:20] LABS: Amphetamine Screen,Urine Negative ng/mL (Cutoff=1000); Barbiturate Screen,Urine Negative ng/mL (Cutoff=200); Benzodiazepines Screen,Urine Negative ng/mL (Cutoff=200); Cannabinoid Screen,Urine Negative ng/mL (Cutoff = 50); Cocaine Screen,Urine Negative ng/mL (Cutoff= 300); Opiate Screen,Urine Negative ng/mL (Cutoff=300); Phencyclidine Screen,Urine Negative ng/mL (Cutoff=25)
[2019-09-22 10:31] LABS: Bilirubin,Urine Negative (Negative); Blood,Urine Small (Negative); Clarity,Urine Clear (Clear); Color,Urine Light-Yellow (Yellow); Glucose,Urine (UA) Normal (Normal); Ketones,Urine Negative (Negative); Leukocyte Esterase,Urine Moderate (Negative); Nitrite,Urine Negative (Negative); Protein,Urine Negative (Neg-Trace); RBC,Urine 0-3 per hpf (0-3); Specific Gravity,Urine 1.017 (1.010-1.025); Squamous Epithelial Cell,Urine Few per hpf (None-Few); Urobilinogen,Urine Normal (Normal); WBC,Urine 0-3 per hpf (0-3)
[2019-09-22 10:34] LABS: Acetaminophen < 10 mcg/mL (10-20); BUN/Creatinine Ratio 18 (6-26); Blood Urea Nitrogen 16 mg/dL (6-20); Calcium 9.2 mg/dL (8.6-10.3); Carbon Dioxide 24 mEq/L (23-29); Chloride 107 mEq/L (98-107); Ethanol < 10 mg/dL (Less than 10); Glucose 112 mg/dL (70-105); Osmolality,Calculated 288 (280-300); Potassium 3.8 mEq/L (3.5-5.1); Salicylate < 2.5 mg/dL (15.0-30.0); Sodium 138 mEq/L (136-145); eGFR For African Americans > 60 (> 60); eGFR For Non-African Americans > 60 (> 60)
[2019-09-22] MEDS ORDERED: haloperidoL 5 MG TABLET PO PRN (12:16)
[2019-09-22] MEDS ORDERED: Mag Hydrox/Al Hydrox/Simeth 30 ML UDC PO PRN (12:16)
[2019-09-22] MEDS ORDERED: MOM Conc 10 ML UD.LIQ PO PRN (12:16)
[2019-09-22] MEDS ORDERED: *HR* LORazepam 1 MG TABLET PO PRN (12:16)
[2019-09-22] MEDS ORDERED: *HR* LORazepam 2 MG/ML VIAL IM PRN (12:16)
[2019-09-22] MEDS ORDERED: hydrOXYzine pamoate 25 MG CAPSULE PO PRN (12:16)
[2019-09-22] MEDS ORDERED: Haloperidol Lactate 5 MG/ML VIAL IM PRN (12:16)
[2019-09-22] MEDS ORDERED: Melatonin 3 MG TABLET PO SCH (21:00)
[2019-09-22] MEDS: clonazePAM 1 MG TABLET PO SCH (21:18)
[2019-09-22] MEDS: Mirtazapine 15 MG TABLET PO SCH (21:19)
[2019-09-22] MEDS: Metoprolol XL (24 HR) Succ 50 MG TAB.ER.24H PO SCH (21:19)
[2019-09-23] MEDS: Acetaminophen 325 MG TABLET PO PRN (04:09)
[2019-09-23] MEDS: clonazePAM 1 MG TABLET PO PRN (10:15)
[2019-09-23] MEDS: lisinopriL 5 MG TABLET PO SCH (10:15)
[2019-09-23] MEDS: Cholecalciferol (D-3) 1,000 UNIT (25MCG) TABLET PO SCH (10:16)
[2019-09-23] MEDS: clonazePAM 1 MG TABLET PO SCH (21:56)
[2019-09-23] MEDS: Melatonin 3 MG TABLET PO SCH (21:57)
[2019-09-23] MEDS: Mirtazapine 15 MG TABLET PO SCH (21:57)
[2019-09-23] MEDS: Metoprolol XL (24 HR) Succ 50 MG TAB.ER.24H PO SCH (21:58)
[2019-09-24] MEDS: traZODone 50 MG TABLET PO PRN ×2 (02:12→21:58)
[2019-09-24] MEDS: Acetaminophen 325 MG TABLET PO PRN (02:12)
[2019-09-24] MEDS: lisinopriL 5 MG TABLET PO SCH (08:56)
[2019-09-24] MEDS: Cholecalciferol (D-3) 1,000 UNIT (25MCG) TABLET PO SCH (08:56)
[2019-09-24] MEDS: Mirtazapine 15 MG TABLET PO SCH (21:57)
[2019-09-24] MEDS: clonazePAM 1 MG TABLET PO SCH (21:57)
[2019-09-24] MEDS: Melatonin 3 MG TABLET PO SCH (21:58)
[2019-09-24] MEDS: Metoprolol XL (24 HR) Succ 50 MG TAB.ER.24H PO SCH (21:58)
[2019-09-25] MEDS: lisinopriL 5 MG TABLET PO SCH (08:41)
[2019-09-25] MEDS: Cholecalciferol (D-3) 1,000 UNIT (25MCG) TABLET PO SCH (08:42)
[2019-09-25] MEDS: Ziprasidone 20 MG CAPSULE PO SCH ×2 (10:01→21:25)
[2019-09-25] MEDS ORDERED: polyethylene glycoL 3350 17 GM POWD.PACK PO PRN (10:45)
[2019-09-25] MEDS: clonazePAM 1 MG TABLET PO PRN (13:54)
[2019-09-25] MEDS: clonazePAM 1 MG TABLET PO SCH (21:25)
[2019-09-25] MEDS: Metoprolol XL (24 HR) Succ 50 MG TAB.ER.24H PO SCH (21:25)
[2019-09-25] MEDS: Mirtazapine 15 MG TABLET PO SCH (21:26)
[2019-09-25] MEDS: Melatonin 3 MG TABLET PO SCH (21:26)
[2019-09-25] MEDS: traZODone 50 MG TABLET PO PRN (21:36)
[2019-09-26] MEDS: lisinopriL 5 MG TABLET PO SCH (08:42)
[2019-09-26] MEDS: Ziprasidone 20 MG CAPSULE PO SCH ×2 (08:43→21:57)
[2019-09-26] MEDS: Cholecalciferol (D-3) 1,000 UNIT (25MCG) TABLET PO SCH (08:43)
[2019-09-26] MEDS: clonazePAM 1 MG TABLET PO PRN (14:19)
[2019-09-26] MEDS: Metoprolol XL (24 HR) Succ 50 MG TAB.ER.24H PO SCH (20:46)
[2019-09-26] MEDS: Acetaminophen 325 MG TABLET PO PRN (20:46)
[2019-09-26] MEDS: clonazePAM 1 MG TABLET PO SCH (20:46)
[2019-09-26] MEDS: traZODone 50 MG TABLET PO PRN (21:56)
[2019-09-26] MEDS: Melatonin 3 MG TABLET PO SCH (21:56)
[2019-09-26] MEDS: Mirtazapine 15 MG TABLET PO SCH (21:56)
[2019-09-27] MEDS: lisinopriL 5 MG TABLET PO SCH (09:02)
[2019-09-27] MEDS: Cholecalciferol (D-3) 1,000 UNIT (25MCG) TABLET PO SCH (09:03)
[2019-09-27] MEDS: Ziprasidone 20 MG CAPSULE PO SCH (09:25)
[2019-09-27] MEDS: clonazePAM 1 MG TABLET PO PRN (17:46)
[2019-09-27] MEDS ORDERED: Lithium Carbonate 300 MG CAPSULE PO SCH (21:00)
[2019-09-27] MEDS: Metoprolol XL (24 HR) Succ 50 MG TAB.ER.24H PO SCH (21:11)
[2019-09-27] MEDS: clonazePAM 1 MG TABLET PO SCH (21:11)
[2019-09-27] MEDS: Melatonin 3 MG TABLET PO SCH (21:53)
[2019-09-27] MEDS: Mirtazapine 15 MG TABLET PO SCH (21:53)
[2019-09-27] MEDS: traZODone 50 MG TABLET PO PRN (21:53)
[2019-09-28] MEDS: Cholecalciferol (D-3) 1,000 UNIT (25MCG) TABLET PO SCH (09:10)
[2019-09-28] MEDS: lisinopriL 5 MG TABLET PO SCH (09:11)
[2019-09-28 09:29] VITALS: BP 124/78
== END 2019-09-28 13:06 | disposition home or self-care (01) | DRG 885 ==
LOC: EMEROOARM 09:34 → 1ANU 11:59
PROVIDERS: ADMIT Psychiatry & Neurology Psychiatry; ATTEND Psychiatry & Neurology Psychiatry